=== PATIENT | female | born 1940 | race Caucasian/White ===

== ENCOUNTER 2017-07-29 14:24 | Inpatient (IN) ==
--- NOTE | 2017-07-29 14:35 | Emergency Department Note ---
ED Disposition Clinical Impression: Cellulitis of foot, Exfoliative dermatitis, Hypercalcemia UTI (urinary tract infection) Qualifiers: Urinary tract infection type: site unspecified Hematuria presence: without hematuria Qualified Code(s): N39.0 - Urinary tract infection, site not specified Shingles Qualifiers: Herpes zoster complications: without complications Qualified Code(s): B02.9 - Zoster without complications Disposition: Still a Patient Condition on Discharge: Fair - Critical Care Critical Care Time: No Attestation: On 07/29/17, the high probability of a clinically significant, sudden or life threatening deterioration of the following system(s) required my full and direct attention, intervention and personal management. The time I documented below is in addition to time spent performing reported procedures but includes the following listed in this critical care notation. Medical Decision Making - Mateo Inquiry Pt receiving controlled substance: No Vital Signs: 07/29/17 14:25 07/29/17 17:28 Temperature 97.7 F 98.0 F Temperature Source Oral Oral Pulse Rate [Right Radial] 66 70 Respiratory Rate 18 18 Blood Pressure [Right Arm] 147/74 132/80 Blood Pressure Mean [Right Arm] 98 97 Blood Pressure Source [Right Arm] Automatic Cuff Automatic Cuff Blood Pressure Position [Right Arm] Supine Sitting 02 Sat by Pulse Oximetry 96 97 Oxygen Delivery Method Room Air Room Air - Lab Data Lab Results 07/29/17 14:20: Urine Color Yellow, Urine Appearance Sl cloudy, Urine pH 6.0, Ur Specific [place] 1.020, Urine Protein 3+, Urine Glucose (UA) Negative, Urine Ketones Negative, Urine Blood 1+, Urine Nitrate Negative, Urine Bilirubin Negative, Urine Urobilinogen 0.2, Ur Leukocyte Esterase Trace, Urine RBC 3-5, Urine WBC 50-100, Ur Squamous Epith Cells 5-10, Urine Bacteria 3+ 07/29/17 16:40: WBC 10.3, RBC 4.29, Hgb 13.4, Hct 40.9, MCV 95.2, MCH 31.2, MCHC 32.7, RDW 13.9, Plt Count 220, MPV 7.4, Neut % (Auto) 82.6 H, Lymph % (Auto ) 11.9, [place] % (Auto) 4.6, Eos % (Auto) 0.7, Baso % (Auto) 0.2, Neut # (Auto) 8.5 H, Lymph # (Auto) 1.2, [place] # (Auto) 0.5, Eos # (Auto) 0.1, Baso # (Auto) 0.0 07/29/17 16:40: Sodium 138, Potassium 5.2 H, Chloride 106, Carbon Dioxide 24, Anion Gap 13.2, BUN 44 H, Creatinine 1.85 H, Estimated Creat Clear 27, Estimated GFR 26 L, Est GFR ( Amer) 32 L, Glucose 166 H, Calcium 12.2 H* , Total Bilirubin 0.2, AST 14 L, ALT 15, Alkaline Phosphatase 80, Total Protein 7.6, Albumin 2.9 L, Globulin 4.7 H, Albumin/Globulin Ratio 0.6 L 07/29/17 16:40: Lactic Acid 0.4 Result diagrams: 07/29/17 16:40 07/29/17 16:40 Orders (Tests/Meds): ED MEDICATIONS Generic Name Dose Route Start Last Admin Trade Name Freq PRN Reason Stop Dose Admin Acetaminophen/Codeine Phosphate 1 each 07/29/17 21:00 Tylenol #3 Tablet PO 08/28/17 20:59 QID COUNT INCLUDES THE [facility] Amlodipine Besylate 10 mg 07/30/17 09:00 Norvasc 10mg Tablet PO 08/29/17 08:59 DAILY COUNT INCLUDES THE [facility] Aspirin 81 mg 07/30/17 09:00 Aspirin 81mg Enteric Coated Tablet PO 08/29/17 08:59 DAILY COUNT INCLUDES THE [facility] Carvedilol 25 mg 07/30/17 09:00 Coreg 25mg Tablet PO 08/29/17 08:59 DAILY COUNT INCLUDES THE [facility] Ampicillin Sodium/Sulbactam 100 mls @ 200 mls/hr 07/29/17 18:00 Sodium 3 gm/ Sodium Chloride IV 08/12/17 17:59 Q6H COUNT INCLUDES THE [facility] Protocol Non-Formulary Medication 10 mg 07/29/17 21:00 Pravastatin Sodium [Pravastatin Sodium] PO 08/28/17 20:59 HS COUNT INCLUDES THE [facility] Discontinued Medications Generic Name Dose Route Start Last Admin Trade Name Freq PRN Reason Stop Dose Admin Vancomycin HCl 1,500 mg/ 250 mls @ 125 mls/hr 07/29/17 17:55 Sodium Chloride IV 07/29/17 17:56 ONCE ONE Protocol Sodium Chloride 1,000 ml 07/29/17 17:27 07/29/17 17:58 Sod Chlor 0.9% 1000ml Bag IV 07/29/17 17:28 1,000 ml BOLUS ONE Administration ORDERS Category Date Time Status Foot XR right minimum 3 views [XR foot RT min 3V] Stat Exams 07/29/17 17:36 Taken XR foot LT min 3V Stat Exams 07/29/17 17:36 Taken Urine Culture Stat Micro 07/29/17 14:20 Received Wound Culture and Gram Stain Stat Micro 07/29/17 15:00 Results - Radiology Data #1 Image(s): Foot/Toes Image Reviewed: Yes I reviewed the patient's radiology image Bilateral foot and toes x-rays interpreted by emergency physician: Osteopenia. No definite signs of osteomyelitis. - Physician Consults Physician Consulted: Joseluis begum He Time: 17:53 Reason -: Admission Comment/Response: Admit, Unasyn and vancomycin. Consult Dr. Abraham. Medical Decision Narrative: 5:40 PM: Discussed results with patient and family. Patient has a known history of hypercalcemia. Has seen a mechanical tech. Because apparently is unknown. Review of labs here shows she was as high as 13.9 on 10/13/15. General Adult HPI - General Chief complaint: Extremity Injury, Lower Stated complaint: SHINGLES, BILATERAL FOOT INFECTION Time Seen by Provider: 07/29/17 14:45 - History of Present Illness HPI narrative: Brought in by ambulance from [facility]. History obtained from patient and family. She has 2 separate issues. She has shingles on the right side of her thorax which is been there for a week. She has chronic infection of her toes and feet, but worse today. She loses her toenails. She has an exfoliating rash of all of her toes. Today she has redness that started at her left small toe this morning and is now spreading over the dorsum of her foot. She went to the [facility] for these issues. While at the [facility] she says that they were pushing on her toes and pus was coming out from around all of her nails. She denies any fever. She has pain in both of her feet. She is bedridden for the past 2 years. She does not even get up to wheelchair. She also is a diabetic, but states that her diabetic medication was stopped 1 year ago, she is not sure why. She also has 18% function of her kidneys. Has not had it checked in quite some time as she does not get to the doctor much because of her immobility. - Related Data Home Medications Medication Instructions Recorded Confirmed Acetaminophen with Codeine 1 tab PO QID 07/29/17 07/29/17 [Tylenol with Codeine #3 tablet] Amlodipine Besylate [Amlodipine 10 mg PO DAILY 07/29/17 07/29/17 10mg Tab] Aspirin [Aspir 81] 81 mg PO DAILY 07/29/17 07/29/17 Carvedilol [Carvedilol 25mg Tab] 25 mg PO DAILY 07/29/17 07/29/17 Pravastatin Sodium 10 mg PO HS 07/29/17 07/29/17 Allergies Allergy/AdvReac Type Severity Reaction Status Date / Time nitrofurantoin Allergy Unknown Verified 07/29/17 14:38 [From MACROBID] Sulfa (Sulfonamide Allergy Unknown Verified 07/29/17 14:38 Antibiotics) [SULFA (SULFONAMIDE ANTIBIOTICS)] sulfamethoxazole Allergy Unknown Verified 07/29/17 14:38 [From BACTRIM] trimethoprim [From BACTRIM] Allergy Unknown Verified 07/29/17 14:38 promethazine [From PHENERGAN] AdvReac Intermediate "MAKES HER Verified 07/29/17 14:38 GO CRAZY AND HAVE HALLUCINATIONS" [facility] History I have reviewed the patient's past medical history: Yes ROS Obtained: Yes All systems reviewed & no additional complaints - Constitutional Constitutional: Denies fever(s) - Genitourinary Female Genitourinary: Reports dysuria, Reports urinary frequency - Integumentary/Breasts Skin/Breast: Reports as per HPI Physical Exam - General General appearance: alert, in no apparent distress - Head Head exam: atraumatic, normocephalic, normal inspection - Eye Eye exam: Present: normal appearance, PERRL, EOMI - ENT ENT exam: Present: normal exam - Neck Neck exam: Present: normal inspection, full ROM, trachea midline. Absent: meningismus, lymphadenopathy - Chest Chest inspection: Present: normal inspection, symmetric chest wall rise. Absent : tenderness - Respiratory Respiratory exam: Present: normal lung sounds bilaterally. Absent: respiratory distress - Cardiovascular Cardiovascular exam: Present: regular rate, normal rhythm. Absent: JVD - Abdominal Exam Abdominal exam: Present: soft, normal bowel sounds. Absent: distention, tenderness, guarding - Neurological Exam Neurological exam: Present: alert, oriented X3 - Psychiatric Psychiatric exam: Present: normal affect, normal mood - Skin Skin exam: Present: warm, dry, intact - Expanded Skin Exam Comment: Typical herpes zoster rash right thorax. Hemorrhagic vesicles and scabs. - Lymphatic Lymphatic Findings: no adenopathy - Other Other exam information: Exfoliating rash of all toes and distal foot bilaterally. Loss of toenails. Some still present, but no real attachment to the toes. Left great toe expresses pus when she was applied to the toenail. Well-circumscribed erythema extending from the region of the fourth and fifth left toes to the dorsum of the foot. Poor pedal pulses bilaterally but normal warmth, capillary refill, and sensation.
[2017-07-29 14:52] LABS: Microscopic, Urine URINE MICROSCOPIC (MICROSCOPIC)
[2017-07-29 15:08] LABS: Appearance,Urine SL CLOUDY (Clear); Bilirubin,Urine Negative (Negative); Blood, Urine 1+ (Negative); Color,Urine YELLOW (Yellow); Glucose,Urine (UA) Negative (Negative); Ketones,Urine Negative (Negative); Leukocyte Esterase,Urine TRACE (Negative); Protein,Urine 3+ (Negative); Urobilinogen,Urine 0.2 EU/dl (0.2)
[2017-07-29 15:19] LABS: Bacteria,Urine 3+ /lpf; WBC,Urine 50-100 #/hpf (0-3)
[2017-07-29 17:02] LABS: Basophils % 0.2 % (0.1-2.0); Eosinophils # 0.1 K/mm3 (0.0-0.4); Eosinophils % 0.7 % (0.1-12.0); Hematocrit 40.9 % (37.0-47.0); Hemoglobin 13.4 g/dL (12.2-16.2); Lymphocytes # 1.2 K/mm3 (0.7-4.5); Lymphocytes % 11.9 K/mm3 (10-50); Mean Corpuscular HGB Conc 32.7 g/dL (31.8-35.4); Mean Corpuscular Hemoglobin 31.2 pg (27.0-31.2); Mean Corpuscular Volume 95.2 fl (81-99); Mean Platelet Volume 7.4 fl (7.4-10.4); Monocytes # 0.5 K/mm3 (0.1-1.0); Monocytes % 4.6 % (1.7-9.3); Neutrophils # 8.5 K/mm3 (1.8-7.8); Neutrophils % 82.6 % (37.0-80.0); Platelet Count 220 K/mm3 (142-424); Red Blood Count 4.29 M/mm3 (4.20-5.40); Red Cell Distribution Width 13.9 % (11.5-17.5); White Blood Count 10.3 K/mm3 (4.8-10.8)
[2017-07-29 17:24] LABS: Albumin Level 2.9 gm/dL (3.4-5.0); Albumin/Globulin Ratio 0.6 (1.1-1.8); Anion Gap 13.2 mEq/L (5-15); Bilirubin,Total 0.2 mg/dL (0.2-1.0); Globulin 4.7 gm/dl (1.3-3.2); Potassium 5.2 mmoL/L (3.5-5.1); Total Protein,Serum 7.6 gm/dL (6.4-8.2)
[2017-07-29 17:26] LABS: Calcium 12.2 mg/dL (8.5-10.1)
[2017-07-30 06:13] LABS: Anion Gap 11.4 mEq/L (5-15); Potassium 4.4 mmoL/L (3.5-5.1)
[2017-07-30 08:50] LABS: Calcium 11.1 mg/dL (8.5-10.1)
--- NOTE | 2017-07-30 09:04 | Pharmacy Consult Notes ---
- Pharmacy Consult Date: 07/30/17 Time: 09:03 Referring provider: DR. MAYNARD Reason for Consult:: VANCOMYCIN DOSING Allergies and ADEs:: Allergies Allergy/AdvReac Type Severity Reaction Status Date / Time nitrofurantoin Allergy Unknown Verified 07/29/17 14:38 [From MACROBID] Sulfa (Sulfonamide Allergy Unknown Verified 07/29/17 14:38 Antibiotics) [SULFA (SULFONAMIDE ANTIBIOTICS)] sulfamethoxazole Allergy Unknown Verified 07/29/17 14:38 [From BACTRIM] trimethoprim [From BACTRIM] Allergy Unknown Verified 07/29/17 14:38 promethazine [From PHENERGAN] AdvReac Intermediate "MAKES HER Verified 07/29/17 14:38 GO CRAZY AND HAVE HALLUCINATIONS" Home Medications:: Home Medications Medication Instructions Recorded Confirmed Type Acetaminophen with Codeine 1 tab PO QID 07/29/17 07/29/17 History [Tylenol with Codeine #3 tablet] Amlodipine Besylate [Amlodipine 10 mg PO DAILY 07/29/17 07/29/17 History 10mg Tab] Aspirin [Aspir 81] 81 mg PO DAILY 07/29/17 07/29/17 History Carvedilol [Carvedilol 25mg Tab] 25 mg PO DAILY 07/29/17 07/29/17 History Pravastatin Sodium 10 mg PO HS 07/29/17 07/29/17 History Height: 1.65 m Weight: 74.503 kg Laboratory Results:: Laboratory Results - last 24 hr 07/29/17 14:20: Urine Color Yellow, Urine Appearance Sl cloudy, Urine pH 6.0, Ur Specific [place] 1.020, Urine Protein 3+, Urine Glucose (UA) Negative, Urine Ketones Negative, Urine Blood 1+, Urine Nitrate Negative, Urine Bilirubin Negative, Urine Urobilinogen 0.2, Ur Leukocyte Esterase Trace, Urine RBC 3-5, Urine WBC 50-100, Ur Squamous Epith Cells 5-10, Urine Bacteria 3+ 07/29/17 16:40: WBC 10.3, RBC 4.29, Hgb 13.4, Hct 40.9, MCV 95.2, MCH 31.2, MCHC 32.7, RDW 13.9, Plt Count 220, MPV 7.4, Neut % (Auto) 82.6 H, Lymph % (Auto ) 11.9, [place] % (Auto) 4.6, Eos % (Auto) 0.7, Baso % (Auto) 0.2, Neut # (Auto) 8.5 H, Lymph # (Auto) 1.2, [place] # (Auto) 0.5, Eos # (Auto) 0.1, Baso # (Auto) 0.0 07/29/17 16:40: Sodium 138, Potassium 5.2 H, Chloride 106, Carbon Dioxide 24, Anion Gap 13.2, BUN 44 H, Creatinine 1.85 H, Estimated Creat Clear 27, Estimated GFR 26 L, Est GFR ( Amer) 32 L, Glucose 166 H, Calcium 12.2 H* , Total Bilirubin 0.2, AST 14 L, ALT 15, Alkaline Phosphatase 80, Total Protein 7.6, Albumin 2.9 L, Globulin 4.7 H, Albumin/Globulin Ratio 0.6 L 07/29/17 16:40: Lactic Acid 0.4 07/29/17 21:24: POC Glucose 203 H 07/30/17 05:52: POC Glucose 117 H 07/30/17 05:55: Sodium 141, Potassium 4.4, Chloride 110 H, Carbon Dioxide 24, Anion Gap 11.4, BUN 38 H, Creatinine 1.65 H, Estimated Creat Clear 33, Estimated GFR 30 L, Est GFR ( Amer) 36 L, Glucose 133 H, Calcium 11.1 H Medical History: Reports:: Diabetes Mellitus Type 2 (NOT TAKING MEDICATIONS FOR DM), Hypertension Denies:: Cancer, Diabetes Mellitus Type 1, MRSA Assessment and Plan - Assessment and plan all Dx Assessment and Plan for all problems:: BASED ON PATIENT FACTORS, RECOMMEND VANCOMYCIN 1500 MG IV ONCE, FOLLOWED BY VANCOMYCIN 1250 MG IV Q36H. PHARMACY WILL FOLLOW DAILY AND ADJUST APPROPRIATE.
--- NOTE | 2017-07-30 09:10 | History & Physical Report ---
*Admission Date: 07/29/17 *Chief complaint: foot infection *History of present illness: 77 year old female with a fairly complicated medical history, was taken to her primary care provider at the [facility] yesterday for evaluation of shingles and redness on her foot. During the evaluation the provided reportedly was able to express puss from around one or more of the toenails. She was though to have cellulitis and abscess of her foot so she was brought by EMS to [facility] ER for further evaluation. Patient states she has been bedridden for at [facility] the last 3 years. She reports sustaining a hip fracture 3 years ago and was never able to walk again after her hip replacement surgery despite intensive rehab at [facility] in [place]. [facility] History Medical History: Reports:: Atherosclerotic Heart Disease, Diabetes Mellitus Type 2 (NOT TAKING MEDICATIONS FOR DM), Hypertension, Renal Insufficiency Denies:: Cancer, Diabetes Mellitus Type 1, MRSA Other Medical History: Reports: Arthritis (numerous joints), Other (bedridden for 3 years, hyperparathyroidism, hypercalcemia) Laterality Cases: Bilateral: Total Hip Replacement (both s/p fractures) Other Surgeries: Yes: Cardiac Catheterization, Cholecystectomy, Coronary Stent, Tubal Ligation, Other Amputation: No Fractures: Yes (RADIAL AND ULNAR FRACTURES) - *Social History Educational Level: Completed High School Alcohol Intake: never Occupational Status: retired Housing: house Household Members: significant other - Psychiatric History Expresses thoughts of harming self/others: None Suicide Plan Description: No Plan *Family Hx:: No significant family history Review of Systems - Constitutional Denies chills, Denies fever(s) - Eyes Denies blurry vision - ENT Denies difficulty swallowing - *Cardiovascular Denies chest pain - *Respiratory Denies cough - *Gastrointestinal Denies abdominal pain - *Musculoskeletal Reports joint pain - *Neurologic Denies dizziness - Psychiatric Denies confusion Meds Home Medications Medication Instructions Recorded Confirmed Type Acetaminophen with Codeine 1 tab PO QID 07/29/17 07/29/17 History [Tylenol with Codeine #3 tablet] Amlodipine Besylate [Amlodipine 10 mg PO DAILY 07/29/17 07/29/17 History 10mg Tab] Aspirin [Aspir 81] 81 mg PO DAILY 07/29/17 07/29/17 History Carvedilol [Carvedilol 25mg Tab] 25 mg PO BID 07/29/17 07/30/17 History Pravastatin Sodium 10 mg PO HS 07/29/17 07/29/17 History Allergies Allergy/AdvReac Type Severity Reaction Status Date / Time nitrofurantoin Allergy Unknown Verified 07/29/17 14:38 [From MACROBID] Sulfa (Sulfonamide Allergy Unknown Verified 07/29/17 14:38 Antibiotics) [SULFA (SULFONAMIDE ANTIBIOTICS)] sulfamethoxazole Allergy Unknown Verified 07/29/17 14:38 [From BACTRIM] trimethoprim [From BACTRIM] Allergy Unknown Verified 07/29/17 14:38 promethazine [From PHENERGAN] AdvReac Intermediate "MAKES HER Verified 07/29/17 14:38 GO CRAZY AND HAVE HALLUCINATIONS" Exam Vital signs and Labs for Last 24 Hours: Temp Pulse Resp BP Pulse Ox 98.8 F 89 18 152/64 95 07/30/17 07:51 07/30/17 07:51 07/30/17 07:51 07/30/17 07:51 07/30/17 07:51 Laboratory Results - last 24 hr 07/29/17 14:20: Urine Color Yellow, Urine Appearance Sl cloudy, Urine pH 6.0, Ur Specific [place] 1.020, Urine Protein 3+, Urine Glucose (UA) Negative, Urine Ketones Negative, Urine Blood 1+, Urine Nitrate Negative, Urine Bilirubin Negative, Urine Urobilinogen 0.2, Ur Leukocyte Esterase Trace, Urine RBC 3-5, Urine WBC 50-100, Ur Squamous Epith Cells 5-10, Urine Bacteria 3+ 07/29/17 16:40: WBC 10.3, RBC 4.29, Hgb 13.4, Hct 40.9, MCV 95.2, MCH 31.2, MCHC 32.7, RDW 13.9, Plt Count 220, MPV 7.4, Neut % (Auto) 82.6 H, Lymph % (Auto ) 11.9, [place] % (Auto) 4.6, Eos % (Auto) 0.7, Baso % (Auto) 0.2, Neut # (Auto) 8.5 H, Lymph # (Auto) 1.2, [place] # (Auto) 0.5, Eos # (Auto) 0.1, Baso # (Auto) 0.0 07/29/17 16:40: Sodium 138, Potassium 5.2 H, Chloride 106, Carbon Dioxide 24, Anion Gap 13.2, BUN 44 H, Creatinine 1.85 H, Estimated Creat Clear 27, Estimated GFR 26 L, Est GFR ( Amer) 32 L, Glucose 166 H, Calcium 12.2 H* , Total Bilirubin 0.2, AST 14 L, ALT 15, Alkaline Phosphatase 80, Total Protein 7.6, Albumin 2.9 L, Globulin 4.7 H, Albumin/Globulin Ratio 0.6 L 07/29/17 16:40: Lactic Acid 0.4 07/29/17 21:24: POC Glucose 203 H 07/30/17 05:52: POC Glucose 117 H 07/30/17 05:55: Sodium 141, Potassium 4.4, Chloride 110 H, Carbon Dioxide 24, Anion Gap 11.4, BUN 38 H, Creatinine 1.65 H, Estimated Creat Clear 33, Estimated GFR 30 L, Est GFR ( Amer) 36 L, Glucose 133 H, Calcium 11.1 H I & O for Last 24 hours: Intake & Output 07/27/17 07/28/17 07/29/17 07/30/17 11:59 11:59 11:59 11:59 Intake Total 844 / 844 Balance 844 / 844 Weight 164 lb 4 oz Microbiology Reports for the Last 24 Hours: Microbiology 07/29/17 15:00 Foot,Left Gram Stain - Final 07/29/17 15:00 Foot,Left Wound Culture - Preliminary 07/29/17 14:20 Urine,Clean Catch Urine Culture - Preliminary Gram Negative Rods - Constitutional no acute distress (conversant) - *Routine HEENT Exam ENT: Present: mucous membranes moist (poor dentition) - *Routine Neck Exam Present: supple (limited rotation) - *Routine Respiratory Exam Present: CTA bilaterally - *Routine Cardiovascular Exam Present: RRR - *Routine Abdominal Exam Present: soft, normoactive bowel sounds. Absent: tenderness - *Routine Extremities Exam Absent: cyanosis, clubbing, edema - *Routine Skin Exam Comments: Only minimal dull redness on the top of the left foot, toenails are thickened and crumbling distally, no purulent drainage noted today - *Routine Neurological Exam Present: alert, oriented X3 H&P: Result - Labs Labs: Short CBC 07/29/17 Range/Units 16:40 WBC 10.3 (4.8-10.8) K/mm3 Hgb 13.4 (12.2-16.2) g/dL Hct 40.9 (37.0-47.0) % Plt Count 220 (142-424) K/mm3 BMP 07/29/17 07/30/17 16:40 05:55 Sodium 138 141 Potassium 5.2 H 4.4 Chloride 106 110 H Carbon Dioxide 24 24 BUN 44 H 38 H Creatinine 1.85 H 1.65 H Glucose 166 H 133 H Calcium 12.2 H* 11.1 H Liver Function 07/29/17 Range/Units 16:40 Total Bilirubin 0.2 (0.2-1.0) mg/dL AST 14 L (15-37) U/L ALT 15 (12-78) U/L Alkaline Phosphatase 80 (46-116) U/L Albumin 2.9 L (3.4-5.0) gm/dL Urine 07/29/17 Range/Units 14:20 Urine Color Yellow (Yellow) Urine Appearance Sl cloudy (Clear) Urine pH 6.0 (5.0-8.5) Ur Specific [place] 1.020 (1.005-1.030) Urine Protein 3+ (Negative) Urine Glucose (UA) Negative (Negative) Assessment and Plan (1) Cellulitis of foot Current visit: Yes Status: Acute Category: Medical Code(s): L03.119 - Cellulitis of unspecified part of limb (2) UTI (urinary tract infection) Current visit: Yes Status: Acute Qualifiers: Urinary tract infection type: site unspecified Hematuria presence: without hematuria Qualified Code(s): N39.0 - Urinary tract infection, site not specified Category: Medical Code(s): N39.0 - Urinary tract infection, site not specified (3) Renal insufficiency Current visit: Yes Status: Acute Category: Medical Code(s): N28.9 - Disorder of kidney and ureter, unspecified (4) CAD (coronary artery disease) Current visit: Yes Status: Acute Category: Medical Code(s): I25.10 - Atherosclerotic heart disease of [place] coronary artery without angina pectoris (5) Bedridden Current visit: Yes Status: Acute Category: Medical Code(s): Z74.01 - Bed confinement status (6) Exfoliative dermatitis Current visit: Yes Status: Acute Category: Medical Code(s): L26 - Exfoliative dermatitis (7) Hypercalcemia Current visit: Yes Status: Acute Category: Medical Code(s): E83.52 - Hypercalcemia (8) Shingles Current visit: Yes Status: Acute Qualifiers: Herpes zoster complications: without complications Qualified Code(s): B02.9 - Zoster without complications Category: Medical Code(s): B02.9 - Zoster without complications (9) Hyperparathyroidism Current visit: Yes Status: Acute Category: Medical Code(s): E21.3 - Hyperparathyroidism, unspecified - Assessment and plan all Dx Assessment and Plan for all problems:: Patient admitted for further management and treatment of her foot cellulitis/ abscess, UTI and hypercalcemia. Plan to continue IVF and antibiotics, will recheck calcium and will check PTH. Dr. Abraham has been consulted.
--- NOTE | 2017-07-30 10:41 | Pharmacy Consult Notes ---
[facility] Pharmacy VTE Monitoring - Patient Demographics Admission date: 07/29/17 Report Date: 07/30/17 Time: 10:41 Allergies/Adverse Reactions: Patient Allergies nitrofurantoin [From MACROBID] Allergy (Unknown, Verified 07/29/17 14:38) Sulfa (Sulfonamide Antibiotics) [SULFA (SULFONAMIDE ANTIBIOTICS)] Allergy ( Unknown, Verified 07/29/17 14:38) sulfamethoxazole [From BACTRIM] Allergy (Unknown, Verified 07/29/17 14:38) trimethoprim [From BACTRIM] Allergy (Unknown, Verified 07/29/17 14:38) promethazine [From PHENERGAN] Adverse Reaction (Intermediate, Verified 07/29/17 14:38) "MAKES HER GO CRAZY AND HAVE HALLUCINATIONS" Height: 1.65 m Weight: 74.503 kg Patient Problems: Current Active Problems Cellulitis of foot (Acute) Exfoliative dermatitis (Acute) UTI (urinary tract infection) (Acute) Shingles (Acute) Hypercalcemia (Acute) Renal insufficiency (Acute) CAD (coronary artery disease) (Acute) Bedridden (Acute) - VTE Risk Labs: VTE Related Lab Results Hgb 13.4 g/dL (12.2-16.2) 07/29/17 16:40 Hct 40.9 % (37.0-47.0) 07/29/17 16:40 Plt Count 220 K/mm3 (142-424) 07/29/17 16:40 BUN 38 mg/dL (7-18) H 07/30/17 05:55 Creatinine 1.65 mg/dL (0.55-1.02) H 07/30/17 05:55 Estimated Creat Clear 33 mL/min (0-300) 07/30/17 05:55 Was VTE Risk Assessment Performed: Yes VTE Score: 2 VTE Risk Level: Low Risk - Prophylaxis VTE Prophylaxis Ordered?: Yes Types of VTE Prophylaxis: TEDS Knee High Location of Applied Device: Bilateral Lower Extremeties
[2017-07-31 07:42] LABS: Basophils % 0.6 % (0.1-2.0); Eosinophils # 0.2 K/mm3 (0.0-0.4); Eosinophils % 2.4 % (0.1-12.0); Hemoglobin 11.2 g/dL (12.2-16.2); Lymphocytes # 2.1 K/mm3 (0.7-4.5); Lymphocytes % 31.2 K/mm3 (10-50); Mean Corpuscular Volume 96.8 fl (81-99); Mean Platelet Volume 7.3 fl (7.4-10.4); Monocytes # 0.6 K/mm3 (0.1-1.0); Monocytes % 8.8 % (1.7-9.3); Neutrophils # 3.8 K/mm3 (1.8-7.8); Neutrophils % 56.9 % (37.0-80.0); Platelet Count 201 K/mm3 (142-424); Red Blood Count 3.61 M/mm3 (4.20-5.40); Red Cell Distribution Width 14.3 % (11.5-17.5); White Blood Count 6.8 K/mm3 (4.8-10.8)
[2017-07-31 07:52] LABS: Albumin Level 2.3 gm/dL (3.4-5.0); Albumin/Globulin Ratio 0.6 (1.1-1.8); Anion Gap 12.4 mEq/L (5-15); Bilirubin,Total 0.2 mg/dL (0.2-1.0); Calcium 10.5 mg/dL (8.5-10.1); Globulin 3.9 gm/dl (1.3-3.2); Potassium 4.4 mmoL/L (3.5-5.1); Total Protein,Serum 6.2 gm/dL (6.4-8.2)
--- NOTE | 2017-07-31 09:01 | Progress Note ---
Internal Medicine - PN: Subj *Date: 07/31/17 *Time: 08:57 Interval history: Patient with no new complaints today, states she slept better last night. Exam Vital signs and Labs for Last 24 Hours: Temp Pulse Resp BP Pulse Ox 98.9 F 75 18 158/69 96 07/31/17 07:40 07/31/17 07:40 07/31/17 07:40 07/31/17 07:40 07/31/17 07:40 Laboratory Results - last 24 hr 07/29/17 16:40: Lactic Acid 0.4 07/30/17 20:25: POC Glucose 165 H 07/31/17 06:12: POC Glucose 131 H 07/31/17 07:08: WBC 6.8 D, RBC 3.61 L, Hgb 11.2 L, Hct 35.0 L, MCV 96.8, MCH 31.0, MCHC 32.0, RDW 14.3, Plt Count 201, MPV 7.3 L, Neut % (Auto) 56.9, Lymph % (Auto) 31.2, [place] % (Auto) 8.8, Eos % (Auto) 2.4, Baso % (Auto) 0.6, Neut # ( Auto) 3.8, Lymph # (Auto) 2.1, [place] # (Auto) 0.6, Eos # (Auto) 0.2, Baso # (Auto ) 0.0 07/31/17 07:08: Sodium 141, Potassium 4.4, Chloride 111 H, Carbon Dioxide 22, Anion Gap 12.4, BUN 33 H, Creatinine 1.70 H, Estimated Creat Clear 32, Estimated GFR 29 L, Est GFR ( Amer) 35 L, Glucose 141 H, Calcium 10.5 H, Total Bilirubin 0.2, AST 13 L, ALT 13, Alkaline Phosphatase 64, Total Protein 6.2 L, Albumin 2.3 L, Globulin 3.9 H, Albumin/Globulin Ratio 0.6 L I & O for Last 24 hours: Intake & Output 07/28/17 07/29/17 07/30/17 07/31/17 11:59 11:59 11:59 11:59 Intake Total 1644 / 1644 2798 / 2798 Balance 1644 / 1644 2798 / 2798 Weight 164 lb 4 oz Microbiology Reports for the Last 24 Hours: Microbiology 07/29/17 15:00 Foot,Left Gram Stain - Final 07/29/17 15:00 Foot,Left Wound Culture - Preliminary Gram Positive Cocci 07/29/17 14:20 Urine,Clean Catch Urine Culture - Final Escherichia coli - Constitutional no acute distress - *Routine Respiratory Exam Present: CTA bilaterally (anteriorly) - *Routine Cardiovascular Exam Present: RRR - *Routine Abdominal Exam Present: soft, normoactive bowel sounds. Absent: tenderness Assessment and Plan (1) Cellulitis of foot Current visit: Yes Status: Acute Category: Medical Code(s): L03.119 - Cellulitis of unspecified part of limb (2) E. coli UTI Current visit: Yes Status: Acute Category: Medical Code(s): N39.0 - Urinary tract infection, site not specified; B96.20 - Unspecified Escherichia coli [E. coli] as the cause of diseases classified elsewhere (3) UTI (urinary tract infection) Current visit: Yes Status: Acute Qualifiers: Urinary tract infection type: site unspecified Hematuria presence: without hematuria Qualified Code(s): N39.0 - Urinary tract infection, site not specified Category: Medical Code(s): N39.0 - Urinary tract infection, site not specified (4) Renal insufficiency Current visit: Yes Status: Acute Category: Medical Code(s): N28.9 - Disorder of kidney and ureter, unspecified (5) CAD (coronary artery disease) Current visit: Yes Status: Acute Category: Medical Code(s): I25.10 - Atherosclerotic heart disease of [place] coronary artery without angina pectoris (6) Bedridden Current visit: Yes Status: Acute Category: Medical Code(s): Z74.01 - Bed confinement status (7) Exfoliative dermatitis Current visit: Yes Status: Acute Category: Medical Code(s): L26 - Exfoliative dermatitis (8) Hypercalcemia Current visit: Yes Status: Acute Category: Medical Code(s): E83.52 - Hypercalcemia (9) Shingles Current visit: Yes Status: Acute Qualifiers: Herpes zoster complications: without complications Qualified Code(s): B02.9 - Zoster without complications Category: Medical Code(s): B02.9 - Zoster without complications (10) Hyperparathyroidism Current visit: Yes Status: Acute Category: Medical Code(s): E21.3 - Hyperparathyroidism, unspecified - Assessment and plan all Dx Assessment and Plan for all problems:: Patient stable, await wound culture results and podiatry evaluation, continue IV Vancomycin. and Rocephin.
--- NOTE | 2017-08-01 09:08 | Progress Note ---
Internal Medicine - PN: Subj *Date: 08/01/17 *Time: 09:05 Interval history: Patient notes some swelling in her arms today. Exam Vital signs and Labs for Last 24 Hours: Temp Pulse Resp BP Pulse Ox 98.9 F 73 20 154/71 95 08/01/17 07:23 08/01/17 07:23 08/01/17 07:23 08/01/17 07:23 08/01/17 07:23 Laboratory Results - last 24 hr 07/30/17 11:59: POC Glucose 166 H 07/30/17 16:46: POC Glucose 153 H 07/30/17 16:49: POC Glucose 354 H* 07/31/17 11:24: POC Glucose 153 H 07/31/17 16:40: POC Glucose 112 H 07/31/17 20:31: POC Glucose 141 H 08/01/17 05:47: POC Glucose 141 H I & O for Last 24 hours: Intake & Output 07/29/17 07/30/17 07/31/17 08/01/17 11:59 11:59 11:59 11:59 Intake Total 1644 / 1644 2798 / 2798 3803 / 3803 Balance 1644 / 1644 2798 / 2798 3803 / 3803 Weight 164 lb 4 oz Microbiology Reports for the Last 24 Hours: Microbiology 07/29/17 15:00 Foot,Left Gram Stain - Final 07/29/17 15:00 Foot,Left Wound Culture - Final Staphylococcus aureus 07/29/17 14:20 Urine,Clean Catch Urine Culture - Final Escherichia coli - Constitutional no acute distress - *Routine Respiratory Exam Present: CTA bilaterally - *Routine Cardiovascular Exam Present: RRR - *Routine Extremities Exam Comments: Some edema in both arms, right more than left. - *Routine Skin Exam Comments: Less redness along the lateral side of the left foot. Assessment and Plan (1) Cellulitis of foot Current visit: Yes Status: Acute Category: Medical Code(s): L03.119 - Cellulitis of unspecified part of limb (2) MRSA infection Current visit: Yes Status: Acute Category: Medical Code(s): A49.02 - Methicillin resistant Staphylococcus aureus infection, unspecified site (3) E. coli UTI Current visit: Yes Status: Acute Category: Medical Code(s): N39.0 - Urinary tract infection, site not specified; B96.20 - Unspecified Escherichia coli [E. coli] as the cause of diseases classified elsewhere (4) UTI (urinary tract infection) Current visit: Yes Status: Acute Qualifiers: Urinary tract infection type: site unspecified Hematuria presence: without hematuria Qualified Code(s): N39.0 - Urinary tract infection, site not specified Category: Medical Code(s): N39.0 - Urinary tract infection, site not specified (5) Renal insufficiency Current visit: Yes Status: Acute Category: Medical Code(s): N28.9 - Disorder of kidney and ureter, unspecified (6) CAD (coronary artery disease) Current visit: Yes Status: Acute Category: Medical Code(s): I25.10 - Atherosclerotic heart disease of [place] coronary artery without angina pectoris (7) Bedridden Current visit: Yes Status: Acute Category: Medical Code(s): Z74.01 - Bed confinement status (8) Exfoliative dermatitis Current visit: Yes Status: Acute Category: Medical Code(s): L26 - Exfoliative dermatitis (9) Hypercalcemia Current visit: Yes Status: Acute Category: Medical Code(s): E83.52 - Hypercalcemia (10) Shingles Current visit: Yes Status: Acute Qualifiers: Herpes zoster complications: without complications Qualified Code(s): B02.9 - Zoster without complications Category: Medical Code(s): B02.9 - Zoster without complications (11) Hyperparathyroidism Current visit: Yes Status: Acute Category: Medical Code(s): E21.3 - Hyperparathyroidism, unspecified - Assessment and plan all Dx Assessment and Plan for all problems:: Patient is improving. Plan PICC line placement today, as patient will need to be on Vanc and Rocephin.
--- NOTE | 2017-08-01 13:22 | History & Physical Report ---
*Admission Date: 07/29/17 *Chief complaint: Toenail discoloration, cellulitis *History of present illness: 77 year old female with a fairly complicated medical history, was taken to her primary care provider at the [facility] yesterday for evaluation of shingles and redness on her foot. During the evaluation the provided reportedly was able to express puss from around one or more of the toenails. She was though to have cellulitis and abscess of her foot so she was brought by EMS to [facility] ER for further evaluation. Patient states she has been bedridden for at [facility] the last 3 years. She reports sustaining a hip fracture 3 years ago and was never able to walk again after her hip replacement surgery despite intensive rehab at [facility] in [place]. [facility] History I have reviewed the patient's past medical history: Yes Medical History: Reports:: Atherosclerotic Heart Disease, Diabetes Mellitus Type 2 (NOT TAKING MEDICATIONS FOR DM), Hypertension, Renal Insufficiency Denies:: Cancer, Diabetes Mellitus Type 1, MRSA Other Medical History: Reports: Arthritis (numerous joints), Other (bedridden for 3 years, hyperparathyroidism, hypercalcemia) Laterality Cases: Bilateral: Total Hip Replacement (both s/p fractures) Other Surgeries: Yes: Cardiac Catheterization, Cholecystectomy, Coronary Stent, Tubal Ligation, Other Amputation: No Fractures: Yes (RADIAL AND ULNAR FRACTURES) - *Social History Educational Level: Completed High School Alcohol Intake: never Occupational Status: retired Housing: house Household Members: significant other - Psychiatric History Expresses thoughts of harming self/others: None Suicide Plan Description: No Plan *Family Hx:: No significant family history Review of Systems - Review of Systems Review of systems:: unable to obtain - Constitutional Denies anorexia, Denies body ache(s), Denies chills, Denies excessive sweating, Denies fever(s) - Eyes Denies blurry vision - *Cardiovascular Denies chest pain, Denies excessive sweating, Denies shortness of breath with activity - *Respiratory Denies cough, Denies shortness of breath - *Gastrointestinal Denies abdominal pain - *Genitourinary Denies difficulty urinating - *Musculoskeletal Reports limited joint movement - *Neurologic Denies confusion, Denies dizziness - Psychiatric Denies anxiety - Hematologic/Lymphatic Reports easy bruising Meds Home Medications Medication Instructions Recorded Confirmed Type Acetaminophen with Codeine 1 tab PO QID 07/29/17 07/29/17 History [Tylenol with Codeine #3 tablet] Amlodipine Besylate [Amlodipine 10 mg PO DAILY 07/29/17 07/29/17 History 10mg Tab] Aspirin [Aspir 81] 81 mg PO DAILY 07/29/17 07/29/17 History Carvedilol [Carvedilol 25mg Tab] 25 mg PO BID 07/29/17 07/30/17 History Pravastatin Sodium 10 mg PO HS 07/29/17 07/29/17 History Allergies Allergy/AdvReac Type Severity Reaction Status Date / Time nitrofurantoin Allergy Unknown Verified 07/29/17 14:38 [From MACROBID] Sulfa (Sulfonamide Allergy Unknown Verified 07/29/17 14:38 Antibiotics) [SULFA (SULFONAMIDE ANTIBIOTICS)] sulfamethoxazole Allergy Unknown Verified 07/29/17 14:38 [From BACTRIM] trimethoprim [From BACTRIM] Allergy Unknown Verified 07/29/17 14:38 promethazine [From PHENERGAN] AdvReac Intermediate "MAKES HER Verified 07/29/17 14:38 GO CRAZY AND HAVE HALLUCINATIONS" Exam Vital signs and Labs for Last 24 Hours: Temp Pulse Resp BP Pulse Ox 98.9 F 73 20 154/71 95 08/01/17 07:23 08/01/17 07:23 08/01/17 07:23 08/01/17 07:23 08/01/17 07:23 Laboratory Results - last 24 hr 07/30/17 11:59: POC Glucose 166 H 07/30/17 16:46: POC Glucose 153 H 07/30/17 16:49: POC Glucose 354 H* 07/31/17 16:40: POC Glucose 112 H 07/31/17 20:31: POC Glucose 141 H 08/01/17 05:47: POC Glucose 141 H 08/01/17 11:55: POC Glucose 191 H I & O for Last 24 hours: Intake & Output 07/30/17 07/31/17 08/01/17 08/02/17 11:59 11:59 11:59 11:59 Intake Total 1644 / 1644 2798 / 2798 3803 / 3803 Balance 1644 / 1644 2798 / 2798 3803 / 3803 Weight 164 lb 4 oz Microbiology Reports for the Last 24 Hours: Microbiology 07/29/17 09:06 Blood Blood Culture - Preliminary NO GROWTH AFTER 24 HOURS 07/29/17 09:00 Blood Blood Culture - Preliminary NO GROWTH AFTER 24 HOURS 07/29/17 15:00 Foot,Left Gram Stain - Final 07/29/17 15:00 Foot,Left Wound Culture - Final Staphylococcus aureus - *Routine HEENT Exam Head: Present: normocephalic - *Routine Neck Exam Absent: JVD - *Routine Respiratory Exam Present: accessory muscle use. Absent: decreased breath sounds - *Routine Cardiovascular Exam Present: RRR - *Routine Abdominal Exam Present: soft - *Routine Rectal Exam Patient deferred: visual exam - *Routine Exam Patient deferred: external exam - *Routine Extremities Exam Absent: calf tenderness, amputation - *Routine Skin Exam Present: intact. Absent: erythema, wounds - *Routine Neurological Exam Present: alert - Detailed Lower Extremity Exam Comments: Multiple discolorations noted on bilateral lower extremities. Palpable pedal pulses 1+ bilaterally. Temp within normal limits. No open lesions or interdigital macerations noted. Nails 1 through 10 thickened elongated. Left first and second and right hallux toenails thick and partially avulsed. Those 3 toenails were removed and underneath there was macerated soft tissue. Right hallux had one less than 1 cc of purulent drainage but no area of deep infection. There was no wound that probed deeply. No malodor or ascending cellulitis noted. The heels did not have signs of pressure ulceration. Patient is very thin and the skin is very thin. Concern of possible ulcer development Results - Labs Result Diagrams: 07/31/17 07:08 07/31/17 07:08 Labs: Abnormal lab results 07/30/17 07/30/17 07/30/17 Range/Units 11:59 16:46 16:49 POC Glucose 166 H 153 H 354 H* (70-110) 07/31/17 07/31/17 08/01/17 Range/Units 16:40 20:31 05:47 POC Glucose 112 H 141 H 141 H (70-110) 08/01/17 Range/Units 11:55 POC Glucose 191 H (70-110) H & H 07/29/17 07/31/17 Range/Units 16:40 07:08 Hgb 13.4 11.2 L (12.2-16.2) g/dL Hct 40.9 35.0 L (37.0-47.0) % All other labs normal. Assessment and Plan (1) Cellulitis of foot Start date: 07/29/17 Current visit: Yes Status: Acute Category: Medical Code(s): L03.119 - Cellulitis of unspecified part of limb Cellulitis, color toenails: Toenails 1 through 10 trimmed with a nail nipper. Under the left first and second toenail there was very soft macerated skin. 1 cc of purulence noted from the right first toenail after it was removed. No ascending cellulitis, nonpalpable lymph nodes, no increased skin temperature noted to the digits. I do not believe there is evidence of any deep infection based on the x-rays and clinical presentation. I think the patient has had a fungal toenail that was compounded with a possible superficial bacterial infection. Symptoms have seemed to improve since she was admitted. Toenails were painted with Betadine and a dry sterile dressing was applied. No evidence of deep infection. Discussed Dr. Cutler and agree with antibiotic therapy. No plans for surgical intervention at this time. The heels did not have signs of pressure ulceration. Patient is very thin and the skin is very thin. Concern of possible ulcer development and break down to pressure heel ulcers. Off load b/l heels with pillows. Patient can follow-up with al outpatient for routine nail care every 2-3 months. (2) MRSA infection Current visit: Yes Status: Acute Category: Medical Code(s): A49.02 - Methicillin resistant Staphylococcus aureus infection, unspecified site (3) E. coli UTI Current visit: Yes Status: Acute Category: Medical Code(s): N39.0 - Urinary tract infection, site not specified; B96.20 - Unspecified Escherichia coli [E. coli] as the cause of diseases classified elsewhere (4) UTI (urinary tract infection) Current visit: Yes Status: Acute Qualifiers: Urinary tract infection type: site unspecified Hematuria presence: without hematuria Qualified Code(s): N39.0 - Urinary tract infection, site not specified Category: Medical Code(s): N39.0 - Urinary tract infection, site not specified (5) Renal insufficiency Current visit: Yes Status: Acute Category: Medical Code(s): N28.9 - Disorder of kidney and ureter, unspecified (6) CAD (coronary artery disease) Current visit: Yes Status: Acute Category: Medical Code(s): I25.10 - Atherosclerotic heart disease of [place] coronary artery without angina pectoris (7) Bedridden Current visit: Yes Status: Acute Category: Medical Code(s): Z74.01 - Bed confinement status (8) Exfoliative dermatitis Current visit: Yes Status: Acute Category: Medical Code(s): L26 - Exfoliative dermatitis (9) Hypercalcemia Current visit: Yes Status: Acute Category: Medical Code(s): E83.52 - Hypercalcemia (10) Shingles Current visit: Yes Status: Acute Qualifiers: Herpes zoster complications: without complications Qualified Code(s): B02.9 - Zoster without complications Category: Medical Code(s): B02.9 - Zoster without complications (11) Hyperparathyroidism Current visit: Yes Status: Acute Category: Medical Code(s): E21.3 - Hyperparathyroidism, unspecified
[2017-08-02 06:56] LABS: Basophils % 0.4 % (0.1-2.0); Eosinophils # 0.4 K/mm3 (0.0-0.4); Eosinophils % 5.3 % (0.1-12.0); Hematocrit 33.5 % (37.0-47.0); Hemoglobin 10.6 g/dL (12.2-16.2); Lymphocytes # 1.7 K/mm3 (0.7-4.5); Lymphocytes % 25.8 K/mm3 (10-50); Mean Corpuscular HGB Conc 31.6 g/dL (31.8-35.4); Mean Corpuscular Hemoglobin 30.8 pg (27.0-31.2); Mean Corpuscular Volume 97.3 fl (81-99); Mean Platelet Volume 7.4 fl (7.4-10.4); Monocytes # 0.5 K/mm3 (0.1-1.0); Monocytes % 7.5 % (1.7-9.3); Platelet Count 199 K/mm3 (142-424); Red Blood Count 3.44 M/mm3 (4.20-5.40); Red Cell Distribution Width 14.2 % (11.5-17.5); White Blood Count 6.6 K/mm3 (4.8-10.8)
[2017-08-02 07:01] LABS: Anion Gap 12.4 mEq/L (5-15); Potassium 4.4 mmoL/L (3.5-5.1)
[2017-08-02 07:38] VITALS: BP 176/70
--- NOTE | 2017-08-02 07:51 | Progress Note ---
Internal Medicine - PN: Subj *Date: 08/02/17 *Time: 07:51 Exam Vital signs and Labs for Last 24 Hours: Temp Pulse Resp BP Pulse Ox 97.9 F 69 20 176/70 93 L 08/02/17 07:36 08/02/17 07:36 08/02/17 07:36 08/02/17 07:36 08/02/17 07:36 Laboratory Results - last 24 hr 07/31/17 07:08: PTH Intact 330 H 08/01/17 11:55: POC Glucose 191 H 08/01/17 17:19: POC Glucose 148 H 08/01/17 18:30: Vancomycin Trough 14.9 08/01/17 21:19: POC Glucose 146 H 08/02/17 06:35: WBC 6.6, RBC 3.44 L, Hgb 10.6 L, Hct 33.5 L, MCV 97.3, MCH 30.8 , MCHC 31.6 L, RDW 14.2, Plt Count 199, MPV 7.4, Neut % (Auto) 61.0, Lymph % ( Auto) 25.8, [place] % (Auto) 7.5, Eos % (Auto) 5.3, Baso % (Auto) 0.4, Neut # (Auto ) 4.0, Lymph # (Auto) 1.7, [place] # (Auto) 0.5, Eos # (Auto) 0.4, Baso # (Auto) 0.0 08/02/17 06:35: Sodium 143, Potassium 4.4, Chloride 113 H, Carbon Dioxide 22, Anion Gap 12.4, BUN 25 H, Creatinine 1.72 H, Estimated Creat Clear 31, Estimated GFR 29 L, Est GFR ( Amer) 35 L, Glucose 133 H 08/02/17 07:07: POC Glucose 118 H I & O for Last 24 hours: Intake & Output 07/30/17 07/31/17 08/01/17 08/02/17 23:59 23:59 23:59 23:59 Intake Total 2610 / 2610 4766 / 4766 1469 / 1469 480 / 480 Balance 2610 / 2610 4766 / 4766 1469 / 1469 480 / 480 Weight 74.503 kg 74.503 kg Microbiology Reports for the Last 24 Hours: Microbiology 07/29/17 09:06 Blood Blood Culture - Preliminary NO GROWTH AFTER 24 HOURS 07/29/17 09:00 Blood Blood Culture - Preliminary NO GROWTH AFTER 24 HOURS 07/29/17 15:00 Foot,Left Gram Stain - Final 07/29/17 15:00 Foot,Left Wound Culture - Final Staphylococcus aureus Assessment and Plan (1) Cellulitis of foot Start date: 07/29/17 Current visit: Yes Status: Acute Category: Medical Code(s): L03.119 - Cellulitis of unspecified part of limb (2) MRSA infection Current visit: Yes Status: Acute Category: Medical Code(s): A49.02 - Methicillin resistant Staphylococcus aureus infection, unspecified site (3) E. coli UTI Current visit: Yes Status: Acute Category: Medical Code(s): N39.0 - Urinary tract infection, site not specified; B96.20 - Unspecified Escherichia coli [E. coli] as the cause of diseases classified elsewhere (4) UTI (urinary tract infection) Current visit: Yes Status: Acute Qualifiers: Qualified Code(s): N39.0 - Urinary tract infection, site not specified Category: Medical Code(s): N39.0 - Urinary tract infection, site not specified (5) Renal insufficiency Current visit: Yes Status: Acute Category: Medical Code(s): N28.9 - Disorder of kidney and ureter, unspecified (6) CAD (coronary artery disease) Current visit: Yes Status: Acute Category: Medical Code(s): I25.10 - Atherosclerotic heart disease of [place] coronary artery without angina pectoris (7) Bedridden Current visit: Yes Status: Acute Category: Medical Code(s): Z74.01 - Bed confinement status (8) Exfoliative dermatitis Current visit: Yes Status: Acute Category: Medical Code(s): L26 - Exfoliative dermatitis (9) Hypercalcemia Current visit: Yes Status: Acute Category: Medical Code(s): E83.52 - Hypercalcemia (10) Shingles Current visit: Yes Status: Acute Qualifiers: Qualified Code(s): B02.9 - Zoster without complications Category: Medical Code(s): B02.9 - Zoster without complications (11) Hyperparathyroidism Current visit: Yes Status: Acute Category: Medical Code(s): E21.3 - Hyperparathyroidism, unspecified The patient's infection will respond to the chosen ABx?: Yes Is the patient receiving the right drug, dose, and route?: Yes Could a more targeted ABx be ordered?: No
--- NOTE | 2017-08-02 07:54 | Progress Note ---
Subjective Date: 08/02/17 Time: 07:40 Principal diagnosis: Cellulitis Interval history: Patient is laying comfortably in bed. She denies pain to the feet. She states "my ankles and heels feel better, like I can move them around more and aren't as stiff". She denies N/V, F/C, SOB/CP. PN: Obj Ex Vital signs: Temp Pulse Resp BP Pulse Ox 97.9 F 69 20 176/70 93 L 08/02/17 07:36 08/02/17 07:36 08/02/17 07:36 08/02/17 07:36 08/02/17 07:36 - Constitutional no acute distress - Routine HEENT Exam Head: Present: normocephalic - Routine Neck Exam Absent: JVD - Routine Respiratory Exam Absent: respiratory distress - Routine Abdominal Exam Present: soft - Routine Extremities Exam Absent: edema - Detailed Lower Extremity Exam Comments: Toenails b/l hallux removed. No new SOI. No purulence, malodor or ascending cellulitis. No increased warmth. No pain to palpation. The erythema noted to the left dorsal lateral foot yesterday has improved. No palpable lymph nodes. No calf or thigh pain noted b/l. Progress Note: A&P (1) Cellulitis of foot Status: Acute Current Visit: Yes (2) MRSA infection Status: Acute Current Visit: Yes (3) E. coli UTI Status: Acute Current Visit: Yes (4) UTI (urinary tract infection) Status: Acute Current Visit: Yes (5) Renal insufficiency Status: Acute Current Visit: Yes (6) CAD (coronary artery disease) Status: Acute Current Visit: Yes (7) Bedridden Status: Acute Current Visit: Yes (8) Exfoliative dermatitis Status: Acute Current Visit: Yes (9) Hypercalcemia Status: Acute Current Visit: Yes (10) Shingles Status: Acute Current Visit: Yes (11) Hyperparathyroidism Status: Acute Current Visit: Yes
--- NOTE | 2017-08-02 08:29 | Progress Note ---
<Alyssa Lee - Last Filed: 08/02/17 08:30> Internal Medicine - PN: Subj *Date: 08/02/17 *Time: 08:30 Interval history: Patient states that she is doing rather well. She has did sleep. She denies pain and shortness of breath. She eating without problems and her bowels have moved. She is voiding QS. She does not get out of bed. She needs assisting with movement in the bed. Exam Vital signs and Labs for Last 24 Hours: Temp Pulse Resp BP Pulse Ox 97.9 F 69 20 176/70 93 L 08/02/17 07:36 08/02/17 07:36 08/02/17 07:36 08/02/17 07:36 08/02/17 07:36 Laboratory Results - last 24 hr 07/31/17 07:08: PTH Intact 330 H 08/01/17 11:55: POC Glucose 191 H 08/01/17 17:19: POC Glucose 148 H 08/01/17 18:30: Vancomycin Trough 14.9 08/01/17 21:19: POC Glucose 146 H 08/02/17 06:35: WBC 6.6, RBC 3.44 L, Hgb 10.6 L, Hct 33.5 L, MCV 97.3, MCH 30.8 , MCHC 31.6 L, RDW 14.2, Plt Count 199, MPV 7.4, Neut % (Auto) 61.0, Lymph % ( Auto) 25.8, [place] % (Auto) 7.5, Eos % (Auto) 5.3, Baso % (Auto) 0.4, Neut # (Auto ) 4.0, Lymph # (Auto) 1.7, [place] # (Auto) 0.5, Eos # (Auto) 0.4, Baso # (Auto) 0.0 08/02/17 06:35: Sodium 143, Potassium 4.4, Chloride 113 H, Carbon Dioxide 22, Anion Gap 12.4, BUN 25 H, Creatinine 1.72 H, Estimated Creat Clear 31, Estimated GFR 29 L, Est GFR ( Amer) 35 L, Glucose 133 H 08/02/17 07:07: POC Glucose 118 H I & O for Last 24 hours: Intake & Output 07/30/17 07/31/17 08/01/17 08/02/17 11:59 11:59 11:59 11:59 Intake Total 1644 / 1644 2798 / 2798 3803 / 3803 1080 / 1080 Balance 1644 / 1644 2798 / 2798 3803 / 3803 1080 / 1080 Weight 164 lb 4 oz 164 lb 4.016 oz Microbiology Reports for the Last 24 Hours: Microbiology 07/29/17 09:06 Blood Blood Culture - Preliminary NO GROWTH AFTER 24 HOURS 07/29/17 09:00 Blood Blood Culture - Preliminary NO GROWTH AFTER 24 HOURS 07/29/17 15:00 Foot,Left Gram Stain - Final 07/29/17 15:00 Foot,Left Wound Culture - Final Staphylococcus aureus - Constitutional no acute distress - *Routine Respiratory Exam Present: CTA bilaterally (Anteriorly and posteriorly; diminished at bases) - *Routine Cardiovascular Exam Present: RRR - *Routine Abdominal Exam Present: soft, normoactive bowel sounds. Absent: tenderness - *Routine Extremities Exam Absent: edema, calf tenderness Comments: Toenails are painted. - *Routine Neurological Exam Present: alert, oriented X3 Assessment and Plan (1) Cellulitis of foot Start date: 07/29/17 Current visit: Yes Status: Acute Category: Medical Code(s): L03.119 - Cellulitis of unspecified part of limb (2) MRSA infection Current visit: Yes Status: Acute Category: Medical Code(s): A49.02 - Methicillin resistant Staphylococcus aureus infection, unspecified site (3) E. coli UTI Current visit: Yes Status: Acute Category: Medical Code(s): N39.0 - Urinary tract infection, site not specified; B96.20 - Unspecified Escherichia coli [E. coli] as the cause of diseases classified elsewhere (4) UTI (urinary tract infection) Current visit: Yes Status: Acute Qualifiers: Urinary tract infection type: site unspecified Hematuria presence: without hematuria Qualified Code(s): N39.0 - Urinary tract infection, site not specified Category: Medical Code(s): N39.0 - Urinary tract infection, site not specified (5) Renal insufficiency Current visit: Yes Status: Acute Category: Medical Code(s): N28.9 - Disorder of kidney and ureter, unspecified (6) CAD (coronary artery disease) Current visit: Yes Status: Acute Category: Medical Code(s): I25.10 - Atherosclerotic heart disease of [place] coronary artery without angina pectoris (7) Bedridden Current visit: Yes Status: Acute Category: Medical Code(s): Z74.01 - Bed confinement status (8) Exfoliative dermatitis Current visit: Yes Status: Acute Category: Medical Code(s): L26 - Exfoliative dermatitis (9) Hypercalcemia Current visit: Yes Status: Acute Category: Medical Code(s): E83.52 - Hypercalcemia (10) Shingles Current visit: Yes Status: Acute Qualifiers: Herpes zoster complications: without complications Qualified Code(s): B02.9 - Zoster without complications Category: Medical Code(s): B02.9 - Zoster without complications (11) Hyperparathyroidism Current visit: Yes Status: Acute Category: Medical Code(s): E21.3 - Hyperparathyroidism, unspecified - Assessment and plan all Dx Assessment and Plan for all problems:: Continue with IV antibiotics. <Mg Cutler - Last Filed: 08/02/17 09:13> Internal Medicine - PN: Subj *Date: 08/02/17 *Time: 09:11 Exam Vital signs and Labs for Last 24 Hours: Temp Pulse Resp BP Pulse Ox 97.9 F 69 20 176/70 93 L 08/02/17 07:36 08/02/17 07:36 08/02/17 07:36 08/02/17 07:36 08/02/17 07:36 Laboratory Results - last 24 hr 07/31/17 07:08: PTH Intact 330 H 08/01/17 11:55: POC Glucose 191 H 08/01/17 17:19: POC Glucose 148 H 08/01/17 18:30: Vancomycin Trough 14.9 08/01/17 21:19: POC Glucose 146 H 08/02/17 06:35: WBC 6.6, RBC 3.44 L, Hgb 10.6 L, Hct 33.5 L, MCV 97.3, MCH 30.8 , MCHC 31.6 L, RDW 14.2, Plt Count 199, MPV 7.4, Neut % (Auto) 61.0, Lymph % ( Auto) 25.8, [place] % (Auto) 7.5, Eos % (Auto) 5.3, Baso % (Auto) 0.4, Neut # (Auto ) 4.0, Lymph # (Auto) 1.7, [place] # (Auto) 0.5, Eos # (Auto) 0.4, Baso # (Auto) 0.0 08/02/17 06:35: Sodium 143, Potassium 4.4, Chloride 113 H, Carbon Dioxide 22, Anion Gap 12.4, BUN 25 H, Creatinine 1.72 H, Estimated Creat Clear 31, Estimated GFR 29 L, Est GFR ( Amer) 35 L, Glucose 133 H 08/02/17 07:07: POC Glucose 118 H I & O for Last 24 hours: Intake & Output 07/30/17 07/31/17 08/01/17 08/02/17 11:59 11:59 11:59 11:59 Intake Total 1644 / 1644 2798 / 2798 3803 / 3803 1080 / 1080 Balance 1644 / 1644 2798 / 2798 3803 / 3803 1080 / 1080 Weight 164 lb 4 oz 164 lb 4.016 oz Microbiology Reports for the Last 24 Hours: Microbiology 07/29/17 09:06 Blood Blood Culture - Preliminary NO GROWTH AFTER 24 HOURS 07/29/17 09:00 Blood Blood Culture - Preliminary NO GROWTH AFTER 24 HOURS 07/29/17 15:00 Foot,Left Gram Stain - Final 07/29/17 15:00 Foot,Left Wound Culture - Final Staphylococcus aureus Assessment and Plan (1) Cellulitis of foot Start date: 07/29/17 Current visit: Yes Status: Acute Category: Medical Code(s): L03.119 - Cellulitis of unspecified part of limb (2) MRSA infection Current visit: Yes Status: Acute Category: Medical Code(s): A49.02 - Methicillin resistant Staphylococcus aureus infection, unspecified site (3) E. coli UTI Current visit: Yes Status: Acute Category: Medical Code(s): N39.0 - Urinary tract infection, site not specified; B96.20 - Unspecified Escherichia coli [E. coli] as the cause of diseases classified elsewhere (4) UTI (urinary tract infection) Current visit: Yes Status: Acute Qualifiers: Urinary tract infection type: site unspecified Hematuria presence: without hematuria Qualified Code(s): N39.0 - Urinary tract infection, site not specified Category: Medical Code(s): N39.0 - Urinary tract infection, site not specified (5) Renal insufficiency Current visit: Yes Status: Acute Category: Medical Code(s): N28.9 - Disorder of kidney and ureter, unspecified (6) CAD (coronary artery disease) Current visit: Yes Status: Acute Category: Medical Code(s): I25.10 - Atherosclerotic heart disease of [place] coronary artery without angina pectoris (7) Bedridden Current visit: Yes Status: Acute Category: Medical Code(s): Z74.01 - Bed confinement status (8) Exfoliative dermatitis Current visit: Yes Status: Acute Category: Medical Code(s): L26 - Exfoliative dermatitis (9) Hypercalcemia Current visit: Yes Status: Acute Category: Medical Code(s): E83.52 - Hypercalcemia (10) Shingles Current visit: Yes Status: Acute Qualifiers: Herpes zoster complications: without complications Qualified Code(s): B02.9 - Zoster without complications Category: Medical Code(s): B02.9 - Zoster without complications (11) Hyperparathyroidism Current visit: Yes Status: Acute Category: Medical Code(s): E21.3 - Hyperparathyroidism, unspecified - Assessment and plan all Dx Assessment and Plan for all problems:: Saw patient, agree with above note, plan discharge today with IV Vancomycin every 36 hours for the next 10 days. Patient to f/u with primary MD in 2 weeks for possible PICC line removal. She needs to f/u with Dr. Randall in [address] Abraham in 3 months.
--- NOTE | 2017-08-02 09:34 | Pharmacy Consult Notes ---
- Pharmacy Consult Date: 08/02/17 Time: 09:32 Referring provider: DR. MAYNARD Reason for Consult:: VANCOMYCIN TROUGH LEVEL Allergies and ADEs:: Allergies Allergy/AdvReac Type Severity Reaction Status Date / Time nitrofurantoin Allergy Unknown Verified 07/29/17 14:38 [From MACROBID] Sulfa (Sulfonamide Allergy Unknown Verified 07/29/17 14:38 Antibiotics) [SULFA (SULFONAMIDE ANTIBIOTICS)] sulfamethoxazole Allergy Unknown Verified 07/29/17 14:38 [From BACTRIM] trimethoprim [From BACTRIM] Allergy Unknown Verified 07/29/17 14:38 promethazine [From PHENERGAN] AdvReac Intermediate "MAKES HER Verified 07/29/17 14:38 GO CRAZY AND HAVE HALLUCINATIONS" Home Medications:: Home Medications Medication Instructions Recorded Confirmed Type Acetaminophen with Codeine 1 tab PO QID 07/29/17 07/29/17 History [Tylenol with Codeine #3 tablet] Amlodipine Besylate [Amlodipine 10 mg PO DAILY 07/29/17 07/29/17 History 10mg Tab] Aspirin [Aspir 81] 81 mg PO DAILY 07/29/17 07/29/17 History Carvedilol [Carvedilol 25mg Tab] 25 mg PO BID 07/29/17 07/30/17 History Pravastatin Sodium 10 mg PO HS 07/29/17 07/29/17 History Height: 1.65 m Weight: 74.503 kg Laboratory Results:: Laboratory Results - last 24 hr 07/31/17 07:08: PTH Intact 330 H 08/01/17 11:55: POC Glucose 191 H 08/01/17 17:19: POC Glucose 148 H 08/01/17 18:30: Vancomycin Trough 14.9 08/01/17 21:19: POC Glucose 146 H 08/02/17 06:35: WBC 6.6, RBC 3.44 L, Hgb 10.6 L, Hct 33.5 L, MCV 97.3, MCH 30.8 , MCHC 31.6 L, RDW 14.2, Plt Count 199, MPV 7.4, Neut % (Auto) 61.0, Lymph % ( Auto) 25.8, [place] % (Auto) 7.5, Eos % (Auto) 5.3, Baso % (Auto) 0.4, Neut # (Auto ) 4.0, Lymph # (Auto) 1.7, [place] # (Auto) 0.5, Eos # (Auto) 0.4, Baso # (Auto) 0.0 08/02/17 06:35: Sodium 143, Potassium 4.4, Chloride 113 H, Carbon Dioxide 22, Anion Gap 12.4, BUN 25 H, Creatinine 1.72 H, Estimated Creat Clear 31, Estimated GFR 29 L, Est GFR ( Amer) 35 L, Glucose 133 H 08/02/17 07:07: POC Glucose 118 H Medical History: Reports:: Atherosclerotic Heart Disease, Diabetes Mellitus Type 2 (NOT TAKING MEDICATIONS FOR DM), Hypertension, Renal Insufficiency Denies:: Cancer, Diabetes Mellitus Type 1, MRSA Assessment and Plan (1) Cellulitis of foot Start date: 07/29/17 Current visit: Yes Status: Acute Category: Medical Code(s): L03.119 - Cellulitis of unspecified part of limb (2) MRSA infection Current visit: Yes Status: Acute Category: Medical Code(s): A49.02 - Methicillin resistant Staphylococcus aureus infection, unspecified site (3) E. coli UTI Current visit: Yes Status: Acute Category: Medical Code(s): N39.0 - Urinary tract infection, site not specified; B96.20 - Unspecified Escherichia coli [E. coli] as the cause of diseases classified elsewhere (4) UTI (urinary tract infection) Current visit: Yes Status: Acute Qualifiers: Urinary tract infection type: site unspecified Hematuria presence: without hematuria Qualified Code(s): N39.0 - Urinary tract infection, site not specified Category: Medical Code(s): N39.0 - Urinary tract infection, site not specified (5) Renal insufficiency Current visit: Yes Status: Acute Category: Medical Code(s): N28.9 - Disorder of kidney and ureter, unspecified (6) CAD (coronary artery disease) Current visit: Yes Status: Acute Category: Medical Code(s): I25.10 - Atherosclerotic heart disease of [place] coronary artery without angina pectoris (7) Bedridden Current visit: Yes Status: Acute Category: Medical Code(s): Z74.01 - Bed confinement status (8) Exfoliative dermatitis Current visit: Yes Status: Acute Category: Medical Code(s): L26 - Exfoliative dermatitis (9) Hypercalcemia Current visit: Yes Status: Acute Category: Medical Code(s): E83.52 - Hypercalcemia (10) Shingles Current visit: Yes Status: Acute Qualifiers: Herpes zoster complications: without complications Qualified Code(s): B02.9 - Zoster without complications Category: Medical Code(s): B02.9 - Zoster without complications (11) Hyperparathyroidism Current visit: Yes Status: Acute Category: Medical Code(s): E21.3 - Hyperparathyroidism, unspecified - Assessment and plan all Dx Assessment and Plan for all problems:: BASED ON VANCOMYCIN TROUGH LEVEL AND PATIENT FACTORS, RECOMMEND CONTINUING VANCOMYCIN 1250 MG IV Q36H. PATIENT WILL BE DISCHARGED TODAY.
--- NOTE | 2017-08-02 21:41 | Discharge Summary ---
General - General Admission date:: 07/29/17 Discharge date: 08/02/17 HPI HPI: 77 year old female with a fairly complicated medical history, was taken to her primary care provider at the [facility] yesterday for evaluation of shingles and redness on her foot. During the evaluation the provided reportedly was able to express puss from around one or more of the toenails. She was thought to have cellulitis and abscess of her foot so she was brought by EMS to [facility] ER for further evaluation. Patient states she has been bedridden for at least the last 3 years. 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 Hospital Course Hospital Course: Patient was admitted for further management and treatment of her foot cellulitis /abscess, UTI and hypercalcemia. She was continued on IVF, vancomycin, and rocephin. Dr. Abraham was consulted and a PICC line was placed. Dr. Abraham trimmed her toe nails. Under the left first and second toenail there was very soft macerated skin. 1 cc of purulence was noted from the right first toenail after it was removed. No ascending cellulitis, nonpalpable lymph nodes, no increased skin temperature was noted to the digits. She did not believe there was evidence of any deep infection based on the x-rays and clinical presentation. She felt the patient had a fungal toenail that was compounded with a possible superficial bacterial infection. Her toenails were painted with Betadine and a dry sterile dressing was applied. Her wound cx was positive for MRSA. She did improve and was stable to be discharged on IV Vancomycin every 36 hours for 10 days. Patient to f/u with primary MD in 2 weeks for possible PICC line removal and with Dr. Abraham in 3 months. Objective Vital signs: Temp Pulse Resp BP Pulse Ox 97.9 F 69 20 176/70 93 L 08/02/17 07:36 08/02/17 07:36 08/02/17 07:36 08/02/17 07:36 08/02/17 07:36 Narrative: - Constitutional no acute distress (conversant) - *Routine HEENT Exam ENT: Present: mucous membranes moist (poor dentition) - *Routine Neck Exam Present: supple (limited rotation) - *Routine Respiratory Exam Present: CTA bilaterally - *Routine Cardiovascular Exam Present: RRR - *Routine Abdominal Exam Present: soft, normoactive bowel sounds. Absent: tenderness - *Routine Extremities Exam Absent: cyanosis, clubbing, edema - *Routine Skin Exam Comments: Only minimal dull redness on the top of the left foot, toenails are thickened and crumbling distally, no purulent drainage noted today - *Routine Neurological Exam Present: alert, oriented X3 Results Labs on day of discharge: Labs from last 24 hours 08/02/17 08/02/17 08/02/17 10:59 07:07 06:35 WBC RBC Hgb Hct MCV MCH MCHC RDW Plt Count MPV Neut % (Auto) Lymph % (Auto) [place] % (Auto) Eos % (Auto) Baso % (Auto) Neut # (Auto) Lymph # (Auto) [place] # (Auto) Eos # (Auto) Baso # (Auto) Sodium 143 Potassium 4.4 Chloride 113 H Carbon Dioxide 22 Anion Gap 12.4 BUN 25 H Creatinine 1.72 H Estimated Creat Clear 31 Estimated GFR 29 L Est GFR ( Amer) 35 L Glucose 133 H POC Glucose 141 H 118 H 25-OH Vitamin D Total 08/02/17 08/01/17 08/01/17 06:35 21:19 17:19 WBC 6.6 RBC 3.44 L Hgb 10.6 L Hct 33.5 L MCV 97.3 MCH 30.8 MCHC 31.6 L RDW 14.2 Plt Count 199 MPV 7.4 Neut % (Auto) 61.0 Lymph % (Auto) 25.8 [place] % (Auto) 7.5 Eos % (Auto) 5.3 Baso % (Auto) 0.4 Neut # (Auto) 4.0 Lymph # (Auto) 1.7 [place] # (Auto) 0.5 Eos # (Auto) 0.4 Baso # (Auto) 0.0 Sodium Potassium Chloride Carbon Dioxide Anion Gap BUN Creatinine Estimated Creat Clear Estimated GFR Est GFR ( Amer) Glucose POC Glucose 146 H 148 H 25-OH Vitamin D Total 07/31/17 07:08 WBC RBC Hgb Hct MCV MCH MCHC RDW Plt Count MPV Neut % (Auto) Lymph % (Auto) [place] % (Auto) Eos % (Auto) Baso % (Auto) Neut # (Auto) Lymph # (Auto) [place] # (Auto) Eos # (Auto) Baso # (Auto) Sodium Potassium Chloride Carbon Dioxide Anion Gap BUN Creatinine Estimated Creat Clear Estimated GFR Est GFR ( Amer) Glucose POC Glucose 25-OH Vitamin D Total 5.7 L Preliminary micro results at discharge 07/29/17 09:06 Blood Culture - Preliminary Blood NO GROWTH AFTER 24 HOURS 07/29/17 09:00 Blood Culture - Preliminary Blood NO GROWTH AFTER 24 HOURS DS: Diagnosis - Discharge Diagnosis (1) Cellulitis of foot Status: Acute (2) MRSA infection Status: Acute (3) E. coli UTI Status: Acute (4) UTI (urinary tract infection) Status: Acute (5) Renal insufficiency Status: Acute (6) CAD (coronary artery disease) Status: Acute (7) Bedridden Status: Acute (8) Exfoliative dermatitis Status: Acute (9) Hypercalcemia Status: Acute (10) Shingles Status: Acute (11) Hyperparathyroidism Status: Acute Discharge Plan - Patient Discharge Instructions ACTIVITY: Continue current activity DIET: continue same diet Patient Instructions: Hyperparathyroidism, DI for Hypercalcemia, DI for Skin Abscess - Follow up Plan Follow up with: Stephen Caceres [Primary Care Provider] - 2 weeks Jeanne Randall [Referring] - 1 month Lana Abraham DPM [Physician] - 10/03/17 Disposition: Home Health Service Home Medications: Home Medications Medication Instructions Recorded Confirmed Type Acetaminophen with Codeine 1 tab PO QID 07/29/17 07/29/17 History [Tylenol with Codeine #3 tablet] Amlodipine Besylate [Amlodipine 10 mg PO DAILY 07/29/17 07/29/17 History 10mg Tab] Aspirin [Aspir 81] 81 mg PO DAILY 07/29/17 07/29/17 History Carvedilol [Carvedilol 25mg Tab] 25 mg PO BID 07/29/17 07/30/17 History Pravastatin Sodium 10 mg PO HS 07/29/17 07/29/17 History Prescriptions/Medication Reconciliation: New Vancomycin HCl [Vancomycin 1000mg Vial] 1,250 mg IV Q36H 10 Days vial cefUROXime axetil [Ceftin 250mg Tablet] 250 mg PO BID #10 tab Continue Acetaminophen with Codeine [Tylenol with Codeine #3 tablet] 1 tab PO QID Amlodipine Besylate [Amlodipine 10mg Tab] 10 mg PO DAILY Aspirin [Aspir 81] 81 mg PO DAILY Pravastatin Sodium 10 mg PO HS Carvedilol [Carvedilol 25mg Tab] 25 mg PO BID
== END 2017-08-02 12:03 | disposition home health service (06) ==
LOC: ER 14:24 → 2ND 14:24 → OBSVTOIN 19:50 → 2ND 19:55
PROVIDERS: ADMIT Internal Medicine Adolescent Medicine; ATTEND Family Medicine

== ENCOUNTER 2017-08-29 22:13 | Inpatient (IN) ==
[2017-08-29 23:08] LABS: Basophils % 0.9 % (0.1-2.0); Eosinophils # 0.1 K/mm3 (0.0-0.4); Hematocrit 45.9 % (37.0-47.0); Lymphocytes # 1.2 K/mm3 (0.7-4.5); Lymphocytes % 24.7 K/mm3 (10-50); Mean Corpuscular HGB Conc 30.5 g/dL (31.8-35.4); Mean Corpuscular Hemoglobin 29.8 pg (27.0-31.2); Mean Corpuscular Volume 97.9 fl (81-99); Monocytes # 0.3 K/mm3 (0.1-1.0); Monocytes % 5.6 % (1.7-9.3); Neutrophils # 3.3 K/mm3 (1.8-7.8); Neutrophils % 66.8 % (37.0-80.0); Platelet Count 225 K/mm3 (142-424); Red Blood Count 4.69 M/mm3 (4.20-5.40); Red Cell Distribution Width 14.6 % (11.5-17.5); White Blood Count 4.9 K/mm3 (4.8-10.8)
[2017-08-29 23:14] LABS: Anion Gap 12.1 mEq/L (5-15); Calcium 11.5 mg/dL (8.5-10.1); Potassium 5.1 mmoL/L (3.5-5.1)
[2017-08-29 23:41] LABS: Appearance,Urine CLEAR (Clear); Bilirubin,Urine Negative (Negative); Blood, Urine TRACE-I (Negative); Color,Urine YELLOW (Yellow); Glucose,Urine (UA) 1+ (Negative); Ketones,Urine Negative (Negative); Leukocyte Esterase,Urine Negative (Negative); Microscopic, Urine URINE MICROSCOPIC (MICROSCOPIC); Protein,Urine 3+ (Negative); Urobilinogen,Urine 0.2 EU/dl (0.2)
--- NOTE | 2017-08-29 23:50 | Emergency Department Note ---
ED Disposition Clinical Impression: Dyspnea and respiratory abnormalities, Hypoxia, Renal insufficiency Hyperglycemia due to type 2 diabetes mellitus Qualifiers: Diabetes mellitus intermodal customer service insulin use: without senior care use Qualified Code(s ): E11.65 - Type 2 diabetes mellitus with hyperglycemia Congestive heart failure Qualifiers: Heart failure type: unspecified Heart failure chronicity: acute Qualified Code( s): I50.9 - Heart failure, unspecified Disposition: Admitted as Observation Condition on Discharge: Fair Referrals: Stephen Caceres [Primary Care Provider] - - Critical Care Critical Care Time: Yes (yes) Attestation: On 08/29/17, the high probability of a clinically significant, sudden or life threatening deterioration of the following system(s) required my full and direct attention, intervention and personal management. The time I documented below is in addition to time spent performing reported procedures but includes the following listed in this critical care notation. Total Critical Care Time: 45 Vital system(s) involved:: Circulatory Failure, Respiratory Failure My critical care processes included: Assessment & monitoring of V/S, Initial and Re-exams, Data Review/Interpretation, Coordinating Care, Medication Orders and management, Documentation Medical Decision Making - Medical Records Medical records reviewed: Yes: I reviewed the patient's medical records. - Mateo Inquiry Pt receiving controlled substance: No (Not indicated) Mateo was queried for this patient: No Vital Signs: 08/29/17 22:15 08/29/17 22:34 08/29/17 23:14 Temperature 98.7 F 97.9 F Temperature Source Oral Oral Pulse Rate 84 Pulse Rate [Right Radial] 88 80 Respiratory Rate 22 20 Blood Pressure [Right Arm] 159/80 146/66 Blood Pressure Mean [Right Arm] 106 92 Blood Pressure Source [Right Arm] Automatic Cuff Automatic Cuff Blood Pressure Position [Right Arm] Supine Supine 02 Sat by Pulse Oximetry 93 L 96 Oxygen Delivery Method Nasal Cannula Nasal Cannula Oxygen Flow Rate (LPM) 2 2 08/29/17 23:42 Temperature Temperature Source Pulse Rate Pulse Rate [Right Radial] 93 H Respiratory Rate 16 Blood Pressure [Right Arm] 146/66 Blood Pressure Mean [Right Arm] 92 Blood Pressure Source [Right Arm] Automatic Cuff Blood Pressure Position [Right Arm] Supine 02 Sat by Pulse Oximetry Oxygen Delivery Method Oxygen Flow Rate (LPM) - Lab Data Lab Results 08/29/17 22:55: WBC 4.9, RBC 4.69, Hgb 14.0, Hct 45.9, MCV 97.9, MCH 29.8, MCHC 30.5 L, RDW 14.6, Plt Count 225, MPV 7.0 L, Neut % (Auto) 66.8, Lymph % (Auto) 24.7, [place] % (Auto) 5.6, Eos % (Auto) 2.0, Baso % (Auto) 0.9, Neut # (Auto) 3.3 , Lymph # (Auto) 1.2, [place] # (Auto) 0.3, Eos # (Auto) 0.1, Baso # (Auto) 0.0 08/29/17 22:55: Sodium 146 H, Potassium 5.1, Chloride 111 H, Carbon Dioxide 28, Anion Gap 12.1, BUN 44 H, Creatinine 2.04 H, Estimated Creat Clear 24, Estimated GFR 23 L, Est GFR ( Amer) 28 L, Glucose 145 H, Calcium 11.5 H 08/29/17 22:55: Lactic Acid 0.2 L 08/29/17 22:55: Troponin I < 0.02 08/29/17 23:27: Urine Color Yellow, Urine Appearance Clear, Urine pH 6.0, Ur Specific [place] 1.020, Urine Protein 3+, Urine Glucose (UA) 1+, Urine Ketones Negative, Urine Blood Trace-i, Urine Nitrate Negative, Urine Bilirubin Negative , Urine Urobilinogen 0.2, Ur Leukocyte Esterase Negative, Urine RBC 5-10, Urine WBC 3-5, Ur Squamous Epith Cells Tntc, Urine Bacteria 1+, Hyaline Casts 3-5 08/30/17 00:01: Specimen Source Rt radial, O2 % 21, ABG pH 7.27 L, ABG pCO2 57.9 H, ABG pO2 47.9 L, ABG HCO3 26.2 H, ABG Total CO2 27.9 H, ABG O2 Saturation 86 L*, ABG Base Excess -0.7, Carter Test Acceptable Result diagrams: 08/29/17 22:55 08/29/17 22:55 Orders (Tests/Meds): ED MEDICATIONS Discontinued Medications Generic Name Dose Route Start Last Admin Trade Name Freq PRN Reason Stop Dose Admin Albuterol/Ipratropium 3 ml 08/29/17 22:29 08/29/17 22:30 Duoneb 3ml Neb IH 08/29/17 22:30 3 ml ONCE ONE Administration ORDERS Category Date Time Status XR chest portable Stat Exams 08/29/17 23:46 Taken Blood Culture Stat Micro 08/29/17 22:55 Received General Adult HPI - General Chief complaint: Shortness of Breath/Dyspnea Stated complaint: Short of air, O2 RA 83-84% Time Seen by Provider: 08/29/17 23:25 Mode of Arrival: EMS Source of Information: Patient, Relative, EMS Limitations: No Limitations Description of Symptoms (Recalled from ER Triage Doc. by RN): Shortness of air, patient states she just doesn't feel right. Oxygen sats 83-84% on RA - History of Present Illness HPI narrative: As given above. O2 was low and she was hallucinating. Denies Chest pain or diaphoresis Onset (ago): hour(s) (2-3) Location: buttocks Severity: moderate Consistency: constant, other (now improved on oxygen) Relieving factors: other (Oxygen) Exacerbating factors: none Associated symptoms: denies other symptoms Treatments prior to arrival: none - Related Data Home Medications Medication Instructions Recorded Confirmed Acetaminophen with Codeine 1 tab PO QID 07/29/17 08/29/17 [Tylenol with Codeine #3 tablet] Amlodipine Besylate [Amlodipine 10 mg PO DAILY 07/29/17 08/29/17 10mg Tab] Aspirin [Aspir 81] 81 mg PO DAILY 07/29/17 08/29/17 Carvedilol [Carvedilol 25mg Tab] 25 mg PO BID 07/29/17 08/29/17 Pravastatin Sodium 10 mg PO HS 07/29/17 08/29/17 Vancomycin HCl [Vancomycin 1000mg 1,250 mg IV Q36H 08/29/17 08/29/17 Vial] cefUROXime axetil [Ceftin 250mg 250 mg PO BID 08/29/17 08/29/17 Tablet] Allergies Allergy/AdvReac Type Severity Reaction Status Date / Time nitrofurantoin Allergy Unknown Verified 07/29/17 14:38 [From MACROBID] Sulfa (Sulfonamide Allergy Unknown Verified 07/29/17 14:38 Antibiotics) [SULFA (SULFONAMIDE ANTIBIOTICS)] sulfamethoxazole Allergy Unknown Verified 07/29/17 14:38 [From BACTRIM] trimethoprim [From BACTRIM] Allergy Unknown Verified 07/29/17 14:38 promethazine [From PHENERGAN] AdvReac Intermediate "MAKES HER Verified 07/29/17 14:38 GO CRAZY AND HAVE HALLUCINATIONS" [facility] History I have reviewed the patient's past medical history: Yes Medical History: Reports:: Atherosclerotic Heart Disease, Diabetes Mellitus Type 2 (NOT TAKING MEDICATIONS FOR DM), Hypertension, Renal Insufficiency Denies:: Cancer, Diabetes Mellitus Type 1, Internal Pacemaker, MRSA Other Medical History: Reports: Arthritis (numerous joints), Other (bedridden for 3 years, hyperparathyroidism, hypercalcemia) Laterality Cases: Bilateral: Total Hip Replacement Other Surgeries: Yes: Cardiac Catheterization, Cholecystectomy, Coronary Stent, Tubal Ligation, Other. No: Pacemaker Amputation: No Fractures: Yes (RADIAL AND ULNAR FRACTURES) - Social History Educational Level: Attended High School Alcohol Intake: never Occupational Status: retired Housing: house Household Members: significant other - Psychiatric History Expresses thoughts of harming self/others: None Suicide Plan Description: No Plan Family Hx:: No significant family history ROS Obtained: Yes All systems reviewed & no additional complaints - Cardiovascular Cardiovascular: Reports system reviewed and no additional complaints, except as docu, Denies chest pain, Reports dyspnea, Denies edema, Denies irregular heart rhythm, Denies palpitations - Respiratory Respiratory: No cough, Yes dyspnea, No wheezing - Neurologic Neurologic: Reports other (Hallucinations) Physical Exam - General General appearance: alert, in no apparent distress - Head Head exam: atraumatic, normocephalic, normal inspection - Eye Eye exam: Present: normal appearance, PERRL, EOMI - ENT ENT exam: Present: normal exam, normal oropharynx, mucous membranes moist, normal external ear exam - Neck Neck exam: Present: normal inspection, full ROM, trachea midline. Absent: meningismus, lymphadenopathy - Chest Chest inspection: Present: normal inspection, symmetric chest wall rise. Absent : tenderness - Respiratory Respiratory exam: Present: normal lung sounds bilaterally. Absent: respiratory distress - Cardiovascular Cardiovascular exam: Present: regular rate, normal rhythm. Absent: JVD - Abdominal Exam Abdominal exam: Present: soft, normal bowel sounds. Absent: distention, tenderness, guarding - Extremities Exam Extremities exam: Present: normal inspection, full ROM, normal capillary refill. Absent: calf tenderness - Back Exam Back exam: Present: normal inspection. Absent: tenderness - Neurological Exam Neurological exam: Present: alert, oriented X3 - Psychiatric Psychiatric exam: Present: normal affect, normal mood - Skin Skin exam: Present: warm, dry, intact, normal color
[2017-08-29 23:57] LABS: Bacteria,Urine 1+ /lpf; Squamous Epithelial Cell,Urine TNTC #/hpf (0-5)
[2017-08-30 00:06] LABS: ABG Base Excess -0.7 mmol/L (-2.4-2.3); ABG HCO3 26.2 mmhg (22.0-26.0); ABG Oxygen Saturation 86 % (90-100); ABG PH 7.27 mmol/L (7.35-7.45); ABG TCO2 27.9 mmhg (23-27)
[2017-08-30 00:08] LABS: Allen's Test ACCEPTABLE; Oxygen 21 %
[2017-08-30 00:11] LABS: ABG PCO2 57.9 mmhg (35.0-45.0); ABG PO2 47.9 mmhg (80-100)
--- NOTE | 2017-08-30 08:20 | Pharmacy Consult Notes ---
[facility] Pharmacy VTE Monitoring - Patient Demographics Admission date: 08/29/17 Report Date: 08/30/17 Time: 08:20 Allergies/Adverse Reactions: Patient Allergies nitrofurantoin [From MACROBID] Allergy (Unknown, Verified 07/29/17 14:38) Sulfa (Sulfonamide Antibiotics) [SULFA (SULFONAMIDE ANTIBIOTICS)] Allergy ( Unknown, Verified 07/29/17 14:38) sulfamethoxazole [From BACTRIM] Allergy (Unknown, Verified 07/29/17 14:38) trimethoprim [From BACTRIM] Allergy (Unknown, Verified 07/29/17 14:38) promethazine [From PHENERGAN] Adverse Reaction (Intermediate, Verified 07/29/17 14:38) "MAKES HER GO CRAZY AND HAVE HALLUCINATIONS" Height: 1.65 m Weight: 75.098 kg Patient Problems: Current Active Problems Renal insufficiency (Acute) Dyspnea and respiratory abnormalities (Acute) Hypoxia (Acute) Hyperglycemia due to type 2 diabetes mellitus (Acute) Congestive heart failure (Acute) - VTE Risk Labs: VTE Related Lab Results Hgb 14.0 g/dL (12.2-16.2) 08/29/17 22:55 Hct 45.9 % (37.0-47.0) 08/29/17 22:55 Plt Count 225 K/mm3 (142-424) 08/29/17 22:55 BUN 44 mg/dL (7-18) H 08/29/17 22:55 Creatinine 2.04 mg/dL (0.55-1.02) H 08/29/17 22:55 Estimated Creat Clear 24 mL/min (0-300) 08/29/17 22:55 VTE Score: 5 VTE Risk Level: Low Risk - Prophylaxis VTE Prophylaxis Ordered?: Yes Types of VTE Prophylaxis: TEDS Knee High Location of Applied Device: Bilateral Lower Extremeties - VTE Diagnosis Confirmed Treatment or plan recommended: Continue Current Treatment
--- NOTE | 2017-08-30 08:26 | History & Physical Report ---
*Admission Date: 08/29/17 *Chief complaint: lethargy, weakness, low oxygen saturations *History of present illness: 77 year old female with multiple chronic medical conditions who has been bed ridden for 4 years following a hip fracture was brought to the ED for a two day history of hallucinations, lethargy and weakness. A family member checked her oxygen saturations at home and reports they were 64% on RA. In the ED, initial CXR was read as CHF. She was given IV Lasix with minimal results. D. Dimer was elevated, as well. She was admitted for oxygen support and further evaluation. Patient denies h/o CHF; however reports she has "13 stents." She is not on oxygen at home and has no previous smoking history. She does report getting choked on both liquids and solids at times. [facility] History I have reviewed the patient's past medical history: Yes Medical History: Reports:: Atherosclerotic Heart Disease, Diabetes Mellitus Type 2, Hypertension, Renal Insufficiency Denies:: Cancer, Diabetes Mellitus Type 1, Internal Pacemaker, MRSA Other Medical History: Reports: Arthritis (numerous joints), Other (bedridden for 3 years, hyperparathyroidism, hypercalcemia) Laterality Cases: Bilateral: Total Hip Replacement Other Surgeries: Yes: Cardiac Catheterization, Cholecystectomy, Coronary Stent, Tubal Ligation, Other. No: Pacemaker Amputation: No Fractures: Yes (RADIAL AND ULNAR FRACTURES) - *Social History Educational Level: Completed High School Alcohol Intake: never Occupational Status: retired Housing: house Household Members: significant other - Psychiatric History Expresses thoughts of harming self/others: None Suicide Plan Description: No Plan *Family Hx:: No significant family history Review of Systems - Review of Systems Review of systems:: pertinent systems reviewed and negative unless documented below - Constitutional Reports malaise, Reports weakness - *Respiratory Reports cough, Reports shortness of breath - *Neurologic Reports confusion, Reports weakness, Reports other (Hallucinations) Meds Home Medications Medication Instructions Recorded Confirmed Type Acetaminophen with Codeine 1 tab PO QID 07/29/17 08/29/17 History [Tylenol with Codeine #3 tablet] Amlodipine Besylate [Amlodipine 10 mg PO DAILY 07/29/17 08/29/17 History 10mg Tab] Aspirin [Aspir 81] 81 mg PO DAILY 07/29/17 08/29/17 History Carvedilol [Carvedilol 25mg Tab] 25 mg PO BID 07/29/17 08/29/17 History Pravastatin Sodium 10 mg PO HS 07/29/17 08/29/17 History Allergies Allergy/AdvReac Type Severity Reaction Status Date / Time nitrofurantoin Allergy Unknown Verified 07/29/17 14:38 [From MACROBID] Sulfa (Sulfonamide Allergy Unknown Verified 07/29/17 14:38 Antibiotics) [SULFA (SULFONAMIDE ANTIBIOTICS)] sulfamethoxazole Allergy Unknown Verified 07/29/17 14:38 [From BACTRIM] trimethoprim [From BACTRIM] Allergy Unknown Verified 07/29/17 14:38 promethazine [From PHENERGAN] AdvReac Intermediate "MAKES HER Verified 07/29/17 14:38 GO CRAZY AND HAVE HALLUCINATIONS" Exam Vital signs and Labs for Last 24 Hours: Temp Pulse Resp BP Pulse Ox 98.9 F 72 18 117/69 93 L 08/30/17 07:37 08/30/17 07:37 08/30/17 07:37 08/30/17 07:37 08/30/17 07:37 Laboratory Results - last 24 hr 08/29/17 22:55: WBC 4.9, RBC 4.69, Hgb 14.0, Hct 45.9, MCV 97.9, MCH 29.8, MCHC 30.5 L, RDW 14.6, Plt Count 225, MPV 7.0 L, Neut % (Auto) 66.8, Lymph % (Auto) 24.7, [place] % (Auto) 5.6, Eos % (Auto) 2.0, Baso % (Auto) 0.9, Neut # (Auto) 3.3 , Lymph # (Auto) 1.2, [place] # (Auto) 0.3, Eos # (Auto) 0.1, Baso # (Auto) 0.0 08/29/17 22:55: Sodium 146 H, Potassium 5.1, Chloride 111 H, Carbon Dioxide 28, Anion Gap 12.1, BUN 44 H, Creatinine 2.04 H, Estimated Creat Clear 24, Estimated GFR 23 L, Est GFR ( Amer) 28 L, Glucose 145 H, Calcium 11.5 H 08/29/17 22:55: Lactic Acid 0.2 L 08/29/17 22:55: Troponin I < 0.02 08/29/17 23:27: Urine Color Yellow, Urine Appearance Clear, Urine pH 6.0, Ur Specific [place] 1.020, Urine Protein 3+, Urine Glucose (UA) 1+, Urine Ketones Negative, Urine Blood Trace-i, Urine Nitrate Negative, Urine Bilirubin Negative , Urine Urobilinogen 0.2, Ur Leukocyte Esterase Negative, Urine RBC 5-10, Urine WBC 3-5, Ur Squamous Epith Cells Tntc, Urine Bacteria 1+, Hyaline Casts 3-5 08/30/17 00:00: D-Dimer 748 H* 08/30/17 00:01: Specimen Source Rt radial, O2 % 21, ABG pH 7.27 L, ABG pCO2 57.9 H, ABG pO2 47.9 L, ABG HCO3 26.2 H, ABG Total CO2 27.9 H, ABG O2 Saturation 86 L*, ABG Base Excess -0.7, Carter Test Acceptable I & O for Last 24 hours: Intake & Output 08/27/17 08/28/17 08/29/17 08/30/17 11:59 11:59 11:59 11:59 Intake Total 970 / 970 Output Total 600 / 600 Balance 370 / 370 Weight 165 lb 9 oz Narrative: Alert and oriented x2, states it is "2019." Rate and rhythm regular, no edema. Lung sounds clear anteriorly. Abdomen soft and nontender. [place] draining clear, yellow urine. Skin pink, warm and dry. No acute neuro deficits. H&P: Result - Labs Labs: Short CBC 08/29/17 Range/Units 22:55 WBC 4.9 (4.8-10.8) K/mm3 Hgb 14.0 (12.2-16.2) g/dL Hct 45.9 (37.0-47.0) % Plt Count 225 (142-424) K/mm3 BMP 08/29/17 22:55 Sodium 146 H Potassium 5.1 Chloride 111 H Carbon Dioxide 28 BUN 44 H Creatinine 2.04 H Glucose 145 H Calcium 11.5 H Cardiac Enzymes 08/29/17 Range/Units 22:55 Troponin I < 0.02 (0.00-0.06) ng/ml Urine 08/29/17 Range/Units 23:27 Urine Color Yellow (Yellow) Urine Appearance Clear (Clear) Urine pH 6.0 (5.0-8.5) Ur Specific [place] 1.020 (1.005-1.030) Urine Protein 3+ (Negative) Urine Glucose (UA) 1+ (Negative) Assessment and Plan (1) Bilateral pneumonia Current visit: Yes Status: Acute Category: Medical Code(s): J18.9 - Pneumonia, unspecified organism (2) Elevated d-dimer Current visit: Yes Status: Acute Category: Medical Code(s): R79.89 - Other specified abnormal findings of blood chemistry (3) CKD (chronic kidney disease) Current visit: Yes Status: Chronic Category: Medical Code(s): N18.9 - Chronic kidney disease, unspecified - Assessment and plan all Dx Assessment and Plan for all problems:: Azithromycin and ceftriaxone added. Bedside swallowing eval for possible aspiration. Will doppler LE and obtain VQ Scan d/t elevated D. Dimer. Will cover with Lovenox pending results.
--- NOTE | 2017-08-30 09:05 | Non-Invasive Vascular Report ---
"Venous Exam Indications: 729.5 Pain in limb. IMPRESSIONS 1. There is no evidence of significant Reflux. 2. No evidence of deep or superficial vein thrombosis involving the right lower extremity and left lower extremity History: Dyspnea. Risk factors: Hypertension. Obese. Congestive heart failure. Renal disease. Patient has been bedridden since 2013. Complete lower extremity venous duplex evaluation. Doppler flow study including spectral analysis, color and harrison scale imaging. Location: Bedside. Patient status: Inpatient. Tables: Venous flow and imaging: + +-------+ + |Location |Overall|Flow properties | + +-------+ + |Right common femoral |Patent |Normal phasicity; spontaneous; normal | | | |augmentation; compressible | + +-------+ + |Right femoral |Patent |Normal phasicity; spontaneous; normal | | | |augmentation; compressible; no reflux | + +-------+ + |Right popliteal |Patent |Normal phasicity; spontaneous; normal | | | |augmentation; compressible | + +-------+ + |Right posterior tibial|Patent |Compressible | + +-------+ + |Right peroneal |Patent |Compressible | + +-------+ + |Right gastrocnemius |Patent |Compressible | + +-------+ + |Right soleal |Patent |Compressible | + +-------+ + |Left common femoral |Patent |Normal phasicity; spontaneous; normal | | | |augmentation; compressible | + +-------+ + |Left femoral |Patent |Normal phasicity; spontaneous; normal | | | |augmentation; compressible | + +-------+ + |Left popliteal |Patent |Normal phasicity; spontaneous; normal | | | |augmentation; compressible | + +-------+ + |Left posterior tibial |Patent |Compressible | + +-------+ + |Left peroneal |Patent |Compressible | + +-------+ + |Left gastrocnemius |Patent |Compressible | + +-------+ + |Left soleal |Patent |Compressible | + +-------+ + (Report amended ) Electronically signed by: Carter Paniagua [id number]"
[2017-08-30 09:47] LABS: Anion Gap 8.7 mEq/L (5-15); Potassium 4.7 mmoL/L (3.5-5.1)
--- NOTE | 2017-08-30 21:11 | Cardiology Report ---
PROCEDURE: 2-D M-mode and color Doppler study INDICATIONS FOR THE TEST: Chest pain COPD Heart Murmur Tobacco Smoking Palpitations Fatigue Syncope Edema Hypertension+Diabetes Mellitus+ Rheumatic Fever SOB VALLADARES Obesity Hyperlipidemia Family History HD Additional History CAD, STENT, BEDRIDDEN FOR 3 YRS PATIENT INFORMATION HEIGHT: 63 WEIGHT:150 GENDER: Female B/P:146/66 2-D/M-MODE INTERPRETATION: 2-D MEASUREMENTS OBSERVED VALUES IN CMS Right Ventricular Dimension (RVDd) 3.2 Interventricular Septum (Thickness)(IVsd) 1.8 Left Ventricular Internal Dimensions(LVIDd) 4.2 Left Ventricular Posterior Wall (Thickness)(LVPWd) 1.2 Aortic Root 2.8 Aortic Cusp Separation 1.9 Left Atrial Dimensions (LAD) 3.1 2D 1. Technically difficult study because of the patient's factor and poor acoustic windows 2. The left atrium is mildly enlarged, left ventricle is normal size, mild concentric left ventricular hypertrophy, visually estimated ejection fraction 55% with no obvious regional wall motion abnormality, endocardial subsequent poorly visualized, a repeat study with Definity contrast is recommended. 3. The right atrium and right ventricle are mildly enlarged with normal contractility. 4. The aortic valve is minimally thickened and fibrosed. 5. The mitral and tricuspid valve are grossly normal. 6. No significant pericardial effusion noted. DOPPLER INTERROGATION: Doppler interrogation of the aortic, mitral and tricuspid valvular presence of mild mitral and tricuspid regurgitation, Doppler evidence of impaired LV relaxation seen, tissue Doppler is inconclusive. Tricuspid regurgitant jet velocity is insufficient for calculation of the right ventricular systolic pressure. CONCLUSION: 1. Technically difficult study because of the patient's factor and poor acoustic windows, repeat study with Definity contrast is recommended. 2. Normal left ventricular size, mild concentric left ventricular hypertrophy, visually estimated ejection fraction is probably 55% with no obvious regional wall motion abnormality, there is poorly visualized. 3. Mildly enlarged right atrium and right ventricle, contractility of the right ventricle is normal 4. Thickened and calcified aortic valve without aortic stenosis aortic insufficiency. 5. Mild mitral and tricuspid regurgitation 6. No significant pericardial effusion noted.
--- NOTE | 2017-08-31 08:56 | Discharge Summary ---
General - General Admission date:: 08/30/17 Discharge date: 08/31/17 HPI HPI: 77 year old female with multiple chronic medical conditions who has been bed ridden for 4 years following a hip fracture was brought to the ED for a two day history of hallucinations, lethargy and weakness. A family member checked her oxygen saturations at home and reports they were 64% on RA. In the ED, initial CXR was read as CHF. She was given IV Lasix with minimal results. D. Dimer was elevated, as well. She was admitted for oxygen support and further evaluation. Patient denies h/o CHF; however reports she has "13 stents." She is not on oxygen at home and has no previous smoking history. She does report getting choked on both liquids and solids at times. Hospital Course Hospital Course: Patient was admitted as noted above, placed on oxygen therapy and IV antibiotics because of bibasilar infiltrates. She was unable to cough up sputum sample. Blood cultures were done and were negative/pending final report at the time of discharge. Because of her marked risk factors for pulmonary embolism/VTE, VQ scan and Dopplers of both legs were done which were low probability and negative respectively. This morning she felt much better, less shortness of air, oxygenation was 89% on room air but nice improvement was noted with 2 L of nasal cannula. Plan will be to discharge home today with antibiotic coverage. She will follow- up with her regular physician group in [place] who are apparently planning to institute some type of home visit situation given her purported inability to get in a wheelchair or travel outside her home other than with ambulance transfer. Objective Vital signs: Temp Pulse Resp BP Pulse Ox 98.5 F 78 18 139/71 95 08/31/17 07:24 08/31/17 07:24 08/31/17 07:24 08/31/17 07:24 08/31/17 07:24 Narrative: Vision is pleasant, talkative, alert and oriented. O2 saturation on 2 L 95%. Lungs have minimal rhonchi in both lung [place] in the bases but overall improved from admission. She has heart rate is regular without murmurs. Abdomen is soft. Previously noted neurologic abnormalities in her extremities are unchanged. No edema or clubbing. Good distal perfusion. Results Labs on day of discharge: Labs from last 24 hours 08/30/17 09:17 Sodium 145 Potassium 4.7 Chloride 110 H Carbon Dioxide 31 Anion Gap 8.7 BUN 44 H Creatinine 2.21 H Estimated Creat Clear 24 Estimated GFR 21 L Est GFR ( Amer) 26 L Glucose 178 H D Calcium 11.0 H DS: Diagnosis - Discharge Diagnosis (1) Bilateral pneumonia Status: Acute (2) Elevated d-dimer Status: Acute (3) CKD (chronic kidney disease) Status: Chronic Discharge Plan - Patient Discharge Instructions ACTIVITY: Continue current activity DIET: continue same diet - Follow up Plan Follow up with: Stephen Caceres [Primary Care Provider] - 1 week Disposition: Home, Self-[facility] Medications: Home Medications Medication Instructions Recorded Confirmed Type Acetaminophen with Codeine 1 tab PO QIDP PRN 07/29/17 08/30/17 History [Tylenol with Codeine #3 tablet] Amlodipine Besylate [Amlodipine 10 mg PO DAILY 07/29/17 08/29/17 History 10mg Tab] Aspirin [Aspir 81] 81 mg PO DAILY 07/29/17 08/29/17 History Carvedilol [Carvedilol 25mg Tab] 25 mg PO BID 07/29/17 08/29/17 History Pravastatin Sodium 10 mg PO HS 07/29/17 08/29/17 History Prescriptions/Medication Reconciliation: New Cefdinir [Omnicef 300mg Capsule] 300 mg PO BID #14 cap predniSONE [Deltasone 20mg tablet] 20 mg PO BID 7 Days #14 tab Azithromycin [Zithromax 250mg tab] 250 mg PO DIRECTED #6 tab Continue Acetaminophen with Codeine [Tylenol with Codeine #3 tablet] 1 tab PO QIDP PRN PRN Reason: PAIN Amlodipine Besylate [Amlodipine 10mg Tab] 10 mg PO DAILY Aspirin [Aspir 81] 81 mg PO DAILY Pravastatin Sodium 10 mg PO HS Carvedilol [Carvedilol 25mg Tab] 25 mg PO BID
== END 2017-08-31 14:50 | disposition home or self-care (01) ==
LOC: 2ND 22:13 → ER 22:13 → OBSVTOIN 08-30 02:10 → 2ND 08-30 02:11
PROVIDERS: ADMIT Internal Medicine Adolescent Medicine; ATTEND Internal Medicine Adolescent Medicine

== ENCOUNTER 2017-09-07 16:27 | Observation (INO) ==
--- NOTE | 2017-09-07 16:58 | Emergency Department Note ---
ED Disposition Clinical Impression: Hyperkalemia, diminished renal excretion, Uremia of renal origin Disposition: Admitted as Observation Condition on Discharge: Good - Critical Care Critical Care Time: Yes Attestation: On 09/07/17, the high probability of a clinically significant, sudden or life threatening deterioration of the following system(s) required my full and direct attention, intervention and personal management. The time I documented below is in addition to time spent performing reported procedures but includes the following listed in this critical care notation. Total Critical Care Time: 20 Vital system(s) involved:: Renal Failure My critical care processes included: Assessment & monitoring of V/S, Initial and Re-exams, Data Review/Interpretation, Coordinating Care, Medication Orders and management, Documentation Medical Decision Making - Medical Records Medical records reviewed: Yes: I reviewed the patient's medical records. MR Comment: 08/29/17 admitted and dx pneumonia, bibasilar, but with negative growth on blood cx as per review of microbiology results; r/o DVT, r/o PE. - Mateo Inquiry Pt receiving controlled substance: No Vital Signs: 09/07/17 16:29 Temperature 98.0 F Temperature Source Oral Pulse Rate [Right Brachial] 80 Respiratory Rate 22 Blood Pressure [Right Radial Artery] 136/72 Blood Pressure Mean [Right Radial Artery] 93 Blood Pressure Source [Right Radial Artery] Automatic Cuff Blood Pressure Position [Right Radial Artery] Sitting 02 Sat by Pulse Oximetry 97 Oxygen Delivery Method Nasal Cannula Oxygen Flow Rate (LPM) 2 - Lab Data Lab results reviewed: Yes: I reviewed the patient's lab results. Lab Results 09/07/17 16:40: WBC 10.1, RBC 4.51, Hgb 13.3, Hct 44.4, MCV 98.3, MCH 29.6, MCHC 30.1 L, RDW 14.2, Plt Count 250, MPV 7.7, Neut % (Auto) 86.5 H, Lymph % ( Auto) 6.2 L, [place] % (Auto) 6.6, Eos % (Auto) 0.5, Baso % (Auto) 0.2, Neut # ( Auto) 8.7 H, Lymph # (Auto) 0.6 L, [place] # (Auto) 0.7, Eos # (Auto) 0.1, Baso # ( Auto) 0.0, Total Counted 100, Neutrophils % (Manual) 83 H, Band Neutrophils % 1.0, Lymphocytes % (Manual) 12, Monocytes % (Manual) 4, Platelet Estimate Normal , Target Cells 1+ 09/07/17 16:40: Sodium 140, Potassium 5.8 H, Chloride 107, Carbon Dioxide 28, Anion Gap 10.8, BUN 98 H, Creatinine 2.20 H, Estimated Creat Clear 24, Estimated GFR 22 L, Est GFR ( Amer) 26 L, Glucose 192 H, Calcium 10.8 H, Total Bilirubin 0.2, AST 13 L, ALT 21, Alkaline Phosphatase 55, Total Protein 6.6, Albumin 2.9 L, Globulin 3.7 H, Albumin/Globulin Ratio 0.8 L 09/07/17 16:40: Lactic Acid 0.6 09/07/17 17:23: ABG pH 7.20 L*, ABG pCO2 61.5 H, ABG pO2 77.1 L, ABG HCO3 23.7, ABG Total CO2 25.5, ABG O2 Saturation 95, ABG Base Excess -4.3 L Result diagrams: 09/07/17 16:40 09/07/17 16:40 Orders (Tests/Meds): ED MEDICATIONS Generic Name Dose Route Start Last Admin Trade Name Freq PRN Reason Stop Dose Admin Calcium Gluconate 1,000 mg/ 35 mls @ 100 mls/hr 09/07/17 17:54 09/07/17 18:06 Sodium Chloride IV 09/07/17 18:14 100 mls/hr ONCE ONE Administration Discontinued Medications Generic Name Dose Route Start Last Admin Trade Name Freq PRN Reason Stop Dose Admin Dextrose 50 ml 09/07/17 17:55 Dextrose 50% 50ml Syringe IVP 09/07/17 17:56 ONCE ONE Insulin Human Regular 10 unit 09/07/17 17:54 Humulin R Insulin 100 Units/Ml 10ml Vial IVP 09/07/17 17:55 ONCE ONE Sodium Polystyrene Sulfonate 15 gm 09/07/17 17:55 Kayexalate 15gm/60ml Bottle PO 09/07/17 17:56 ONCE ONE ORDERS Category Date Time Status 12-lead EKG Request [ECG Request by /Tracy] Stat Y 09/07/17 17:38 Ordered - Radiology Data #1 Image(s): Chest Image Reviewed: Yes I reviewed the patient's radiology image Preliminary Findings: Normal/NAD (bibasilar infiltr seen previously, aortic valve, borderline CM; neg acute interval changes ) - ECG Data Tracing #1 NSR normal axis and intervals, no ST or T w changes, no ectopy; nl EKG - Physician Consults Physician Consulted: Dr. Huggins service call Time: 17:49 (admit on NS 50ml/hr) Reason -: Admission, Pt condition Medical Decision Narrative: ABG compared to prior shows less hypoxia; continues to retain; her BUN is significantly elevated; lab states specimen not hemolyzed and confirms elevated potassium level, which was treated with Calcium IV, insulin/D50, kayexalate; Dr. Huggins on service call amenable to admission; place on NS 50 ml/hr recheck BMP in AM. General Adult HPI - General Chief complaint: Shortness of Breath/Dyspnea Stated complaint: low Sa02 Time Seen by Provider: 09/07/17 16:55 Mode of Arrival: EMS Limitations: No Limitations Description of Symptoms (Recalled from ER Triage Doc. by RN): Pt reports her home health nurse came to see her today and her oxygen level was low, pt is home 02 dependent at 2L per NC. Pt reports that her home health nurse woke her up from a nap. Pt states she was recently discharged from hospital after treatment for pneumonia. Pt denies SOA at this times, states she still isn't feeling as well as she normally would. - History of Present Illness HPI narrative: Patient was napping when HHN assessed her and noted some hypoxia and elevated BP. Sent to ED for evaluation with no complaints. Had dx pneumonia last week, r/ o for PE, doing better on Keflex and Zpack, with last dose of prednisone today. Denies acute SOB or VALLADARES; denies chest pain; denies fever; denies calf edema/pain ; no new cough; no sputum; taking PO well and ate eggbeaters, toast and drank coffee today no problem. Denies any neurological sx. Severity: mild Consistency: now resolved Relieving factors: none (napping) Treatments prior to arrival: none - Related Data Home Medications Medication Instructions Recorded Confirmed Acetaminophen with Codeine 1 tab PO QIDP PRN 07/29/17 09/07/17 [Tylenol with Codeine #3 tablet] Amlodipine Besylate [Amlodipine 10 mg PO DAILY 07/29/17 09/07/17 10mg Tab] Aspirin [Aspir 81] 81 mg PO DAILY 07/29/17 09/07/17 Carvedilol [Carvedilol 25mg Tab] 25 mg PO BID 07/29/17 09/07/17 Pravastatin Sodium 10 mg PO HS 07/29/17 09/07/17 Cefdinir [Omnicef 300mg Capsule] 300 mg PO BID 09/07/17 09/07/17 predniSONE [Deltasone 20mg 20 mg PO BID 09/07/17 09/07/17 tablet] Allergies Allergy/AdvReac Type Severity Reaction Status Date / Time nitrofurantoin Allergy Unknown Verified 07/29/17 14:38 [From MACROBID] Sulfa (Sulfonamide Allergy Unknown Verified 07/29/17 14:38 Antibiotics) [SULFA (SULFONAMIDE ANTIBIOTICS)] sulfamethoxazole Allergy Unknown Verified 07/29/17 14:38 [From BACTRIM] trimethoprim [From BACTRIM] Allergy Unknown Verified 07/29/17 14:38 promethazine [From PHENERGAN] AdvReac Intermediate "MAKES HER Verified 07/29/17 14:38 GO CRAZY AND HAVE HALLUCINATIONS" [facility] History I have reviewed the patient's past medical history: Yes Medical History: Reports:: Atherosclerotic Heart Disease, Hypertension, Renal Insufficiency Denies:: Cancer, Diabetes Mellitus Type 1, Diabetes Mellitus Type 2, Internal Pacemaker, MRSA Other Medical History: Reports: Arthritis (numerous joints), Other (bedridden for 3 years, hyperparathyroidism, hypercalcemia) Laterality Cases: Bilateral: Total Hip Replacement Other Surgeries: Yes: Cardiac Catheterization, Cholecystectomy, Coronary Stent, Tubal Ligation, Other. No: Pacemaker Amputation: No Fractures: Yes (RADIAL AND ULNAR FRACTURES) - Social History Alcohol Intake: never Occupational Status: retired Housing: house Household Members: significant other - Psychiatric History Expresses thoughts of harming self/others: None Suicide Plan Description: No Plan Family Hx:: No significant family history ROS Obtained: Yes All systems reviewed & no additional complaints Physical Exam - General General appearance: alert, in no apparent distress - Head Head exam: atraumatic, normocephalic, normal inspection - Eye Eye exam: Present: normal appearance, PERRL, EOMI - ENT ENT exam: Present: normal exam, normal oropharynx, mucous membranes moist, normal external ear exam - Neck Neck exam: Present: normal inspection, full ROM, trachea midline. Absent: meningismus, lymphadenopathy - Chest Chest inspection: Present: normal inspection, symmetric chest wall rise. Absent : tenderness - Respiratory Respiratory exam: Present: normal lung sounds bilaterally. Absent: respiratory distress - Cardiovascular Cardiovascular exam: Present: regular rate, normal rhythm. Absent: JVD - Abdominal Exam Abdominal exam: Present: soft, normal bowel sounds. Absent: distention, tenderness, guarding - Extremities Exam Extremities exam: Present: normal inspection, full ROM, normal capillary refill. Absent: calf tenderness - Back Exam Back exam: Present: normal inspection. Absent: tenderness - Neurological Exam Neurological exam: Present: alert, oriented X3 - Psychiatric Psychiatric exam: Present: normal affect, normal mood - Skin Skin exam: Present: warm, dry, intact, normal color - Lymphatic Lymphatic Findings: no adenopathy
[2017-09-07 17:02] LABS: Basophils % 0.2 % (0.1-2.0); Eosinophils # 0.1 K/mm3 (0.0-0.4); Eosinophils % 0.5 % (0.1-12.0); Hematocrit 44.4 % (37.0-47.0); Hemoglobin 13.3 g/dL (12.2-16.2); Lymphocytes # 0.6 K/mm3 (0.7-4.5); Lymphocytes % 6.2 K/mm3 (10-50); Mean Corpuscular HGB Conc 30.1 g/dL (31.8-35.4); Mean Corpuscular Hemoglobin 29.6 pg (27.0-31.2); Mean Corpuscular Volume 98.3 fl (81-99); Mean Platelet Volume 7.7 fl (7.4-10.4); Monocytes # 0.7 K/mm3 (0.1-1.0); Monocytes % 6.6 % (1.7-9.3); Neutrophils # 8.7 K/mm3 (1.8-7.8); Neutrophils % 86.5 % (37.0-80.0); Platelet Count 250 K/mm3 (142-424); Red Blood Count 4.51 M/mm3 (4.20-5.40); Red Cell Distribution Width 14.2 % (11.5-17.5); White Blood Count 10.1 K/mm3 (4.8-10.8)
[2017-09-07 17:13] LABS: Albumin Level 2.9 gm/dL (3.4-5.0); Albumin/Globulin Ratio 0.8 (1.1-1.8); Anion Gap 10.8 mEq/L (5-15); Bilirubin,Total 0.2 mg/dL (0.2-1.0); Calcium 10.8 mg/dL (8.5-10.1); Globulin 3.7 gm/dl (1.3-3.2); Potassium 5.8 mmoL/L (3.5-5.1); Total Protein,Serum 6.6 gm/dL (6.4-8.2)
[2017-09-07 17:31] LABS: Lymphocytes % 12 % (10-50); Monocytes % 4 % (2-9); Neutrophils % 83 % (42-76); Total Cells Counted 100
[2017-09-07 17:32] LABS: Target Cells 1+
[2017-09-07 17:34] LABS: ABG Base Excess -4.3 mmol/L (-2.4-2.3); ABG HCO3 23.7 mmhg (22.0-26.0); ABG Oxygen Saturation 95 % (90-100); ABG PO2 77.1 mmhg (80-100); ABG TCO2 25.5 mmhg (23-27)
[2017-09-07 17:36] LABS: ABG PCO2 61.5 mmhg (35.0-45.0)
[2017-09-07 18:48] LABS: Basophils % 0.3 % (0.1-2.0); Eosinophils # 0.1 K/mm3 (0.0-0.4); Eosinophils % 0.8 % (0.1-12.0); Hematocrit 38.3 % (37.0-47.0); Hemoglobin 12.6 g/dL (12.2-16.2); Lymphocytes # 0.5 K/mm3 (0.7-4.5); Lymphocytes % 7.9 K/mm3 (10-50); Mean Corpuscular Hemoglobin 32.5 pg (27.0-31.2); Mean Corpuscular Volume 98.4 fl (81-99); Mean Platelet Volume 7.9 fl (7.4-10.4); Monocytes # 0.2 K/mm3 (0.1-1.0); Monocytes % 3.9 % (1.7-9.3); Neutrophils # 5.5 K/mm3 (1.8-7.8); Neutrophils % 87.1 % (37.0-80.0); Platelet Count 210 K/mm3 (142-424); Red Blood Count 3.89 M/mm3 (4.20-5.40); Red Cell Distribution Width 14.2 % (11.5-17.5); White Blood Count 6.3 K/mm3 (4.8-10.8)
--- NOTE | 2017-09-07 23:10 | Pharmacy Consult Notes ---
[facility] Pharmacy VTE Monitoring - Patient Demographics Admission date: 09/07/17 Report Date: 09/07/17 Time: 23:10 Allergies/Adverse Reactions: Patient Allergies nitrofurantoin [From MACROBID] Allergy (Unknown, Verified 07/29/17 14:38) Sulfa (Sulfonamide Antibiotics) [SULFA (SULFONAMIDE ANTIBIOTICS)] Allergy ( Unknown, Verified 07/29/17 14:38) sulfamethoxazole [From BACTRIM] Allergy (Unknown, Verified 07/29/17 14:38) trimethoprim [From BACTRIM] Allergy (Unknown, Verified 07/29/17 14:38) promethazine [From PHENERGAN] Adverse Reaction (Intermediate, Verified 07/29/17 14:38) "MAKES HER GO CRAZY AND HAVE HALLUCINATIONS" Height: 1.65 m Weight: 70.307 kg Patient Problems: Current Active Problems Hyperkalemia, diminished renal excretion (Acute) Uremia of renal origin (Acute) - VTE Risk Labs: VTE Related Lab Results Hgb 12.6 g/dL (12.2-16.2) 09/07/17 18:40 Hct 38.3 % (37.0-47.0) 09/07/17 18:40 Plt Count 210 K/mm3 (142-424) 09/07/17 18:40 BUN 98 mg/dL (7-18) H 09/07/17 16:40 Creatinine 2.20 mg/dL (0.55-1.02) H 09/07/17 16:40 Estimated Creat Clear 24 mL/min (0-300) 09/07/17 16:40 Clinical Trial Participant: No - Prophylaxis VTE Prophylaxis Ordered?: Yes Types of VTE Prophylaxis: TEDS Knee High
[2017-09-08 06:17] LABS: Albumin Level 2.6 gm/dL (3.4-5.0); Albumin/Globulin Ratio 0.8 (1.1-1.8); Anion Gap 12.4 mEq/L (5-15); Bilirubin,Total 0.2 mg/dL (0.2-1.0); Calcium 10.3 mg/dL (8.5-10.1); Globulin 3.3 gm/dl (1.3-3.2); Phosphorous 6.6 mg/dL (2.4-4.9); Potassium 5.4 mmoL/L (3.5-5.1); Total Protein,Serum 5.9 gm/dL (6.4-8.2)
--- NOTE | 2017-09-08 15:38 | History & Physical Report ---
*Admission Date: 09/07/17 *Chief complaint: lethargy, shortness of breath *History of present illness: 77 year old female who was discharged on 08/31 from [facility] following an admission for pneumonia presented to the ED with increased lethargy and shortness of breath. Significant other reports patient "was out of it" all day yesterday. She was seen by home health nurse and noted to be lethargic and short of breath with low oxygen saturations so she was brought to the ED for evaluation. In the ED, patient was found to have bilateral pleural effusions and hyperkalemia with K 5.4. Potassium was treated and she was admitted for further evaluation. [facility] History I have reviewed the patient's past medical history: Yes Medical History: Reports:: Atherosclerotic Heart Disease, Hypertension, Renal Insufficiency Denies:: Cancer, Diabetes Mellitus Type 1, Diabetes Mellitus Type 2, Internal Pacemaker, MRSA Other Medical History: Reports: Arthritis (numerous joints), Other (bedridden for 3 years, hyperparathyroidism, hypercalcemia) Laterality Cases: Bilateral: Total Hip Replacement Other Surgeries: Yes: Cardiac Catheterization, Cholecystectomy, Coronary Stent, Tubal Ligation, Other. No: Pacemaker Amputation: No Fractures: Yes (RADIAL AND ULNAR FRACTURES) - *Social History Educational Level: Completed High School Alcohol Intake: never Occupational Status: retired Housing: house Household Members: significant other - Psychiatric History Expresses thoughts of harming self/others: None Suicide Plan Description: No Plan *Family Hx:: No significant family history Review of Systems - Review of Systems Review of systems:: pertinent systems reviewed and negative unless documented below - Constitutional Reports malaise, Reports weakness - *Respiratory Reports cough, Reports shortness of breath Meds Home Medications Medication Instructions Recorded Confirmed Type Acetaminophen with Codeine 1 tab PO QIDP PRN 07/29/17 09/07/17 History [Tylenol with Codeine #3 tablet] Amlodipine Besylate [Amlodipine 10 mg PO DAILY 07/29/17 09/07/17 History 10mg Tab] Aspirin [Aspir 81] 81 mg PO DAILY 07/29/17 09/07/17 History Carvedilol [Carvedilol 25mg Tab] 25 mg PO BID 07/29/17 09/07/17 History Pravastatin Sodium 10 mg PO HS 07/29/17 09/07/17 History Allergies Allergy/AdvReac Type Severity Reaction Status Date / Time nitrofurantoin Allergy Unknown Verified 07/29/17 14:38 [From MACROBID] Sulfa (Sulfonamide Allergy Unknown Verified 07/29/17 14:38 Antibiotics) [SULFA (SULFONAMIDE ANTIBIOTICS)] sulfamethoxazole Allergy Unknown Verified 07/29/17 14:38 [From BACTRIM] trimethoprim [From BACTRIM] Allergy Unknown Verified 07/29/17 14:38 promethazine [From PHENERGAN] AdvReac Intermediate "MAKES HER Verified 07/29/17 14:38 GO CRAZY AND HAVE HALLUCINATIONS" Exam Vital signs and Labs for Last 24 Hours: Temp Pulse Resp BP Pulse Ox 98.1 F 77 24 133/61 96 09/08/17 12:15 09/08/17 12:15 09/08/17 12:15 09/08/17 12:15 09/08/17 12:15 Laboratory Results - last 24 hr 09/07/17 16:40: WBC 10.1, RBC 4.51, Hgb 13.3, Hct 44.4, MCV 98.3, MCH 29.6, MCHC 30.1 L, RDW 14.2, Plt Count 250, MPV 7.7, Neut % (Auto) 86.5 H, Lymph % ( Auto) 6.2 L, [place] % (Auto) 6.6, Eos % (Auto) 0.5, Baso % (Auto) 0.2, Neut # ( Auto) 8.7 H, Lymph # (Auto) 0.6 L, [place] # (Auto) 0.7, Eos # (Auto) 0.1, Baso # ( Auto) 0.0, Total Counted 100, Neutrophils % (Manual) 83 H, Band Neutrophils % 1.0, Lymphocytes % (Manual) 12, Monocytes % (Manual) 4, Platelet Estimate Normal , Target Cells 1+ 09/07/17 16:40: Sodium 140, Potassium 5.8 H, Chloride 107, Carbon Dioxide 28, Anion Gap 10.8, BUN 98 H, Creatinine 2.20 H, Estimated Creat Clear 24, Estimated GFR 22 L, Est GFR ( Amer) 26 L, Glucose 192 H, Calcium 10.8 H, Total Bilirubin 0.2, AST 13 L, ALT 21, Alkaline Phosphatase 55, Total Protein 6.6, Albumin 2.9 L, Globulin 3.7 H, Albumin/Globulin Ratio 0.8 L 09/07/17 16:40: Lactic Acid 0.6 09/07/17 17:23: ABG pH 7.20 L*, ABG pCO2 61.5 H, ABG pO2 77.1 L, ABG HCO3 23.7, ABG Total CO2 25.5, ABG O2 Saturation 95, ABG Base Excess -4.3 L 09/07/17 18:40: WBC 6.3 D, RBC 3.89 L, Hgb 12.6, Hct 38.3, MCV 98.4, MCH 32.5 H , MCHC 33.0, RDW 14.2, Plt Count 210, MPV 7.9, Neut % (Auto) 87.1 H, Lymph % ( Auto) 7.9 L, [place] % (Auto) 3.9, Eos % (Auto) 0.8, Baso % (Auto) 0.3, Neut # ( Auto) 5.5, Lymph # (Auto) 0.5 L, [place] # (Auto) 0.2, Eos # (Auto) 0.1, Baso # ( Auto) 0.0 09/07/17 19:55: POC Glucose 150 H 09/08/17 05:40: Sodium 142, Potassium 5.4 H, Chloride 106, Carbon Dioxide 29, Anion Gap 12.4, BUN 95 H, Creatinine 2.10 H, Estimated Creat Clear 24, Estimated GFR 23 L, Est GFR ( Amer) 27 L, Glucose 214 H, Calcium 10.3 H, Phosphorus 6.6 H, Total Bilirubin 0.2, AST 12 L, ALT 23, Alkaline Phosphatase 52 , Total Protein 5.9 L, Albumin 2.6 L D, Globulin 3.3 H, Albumin/Globulin Ratio 0.8 L 09/08/17 06:16: POC Glucose 195 H 09/08/17 11:36: POC Glucose 204 H I & O for Last 24 hours: Intake & Output 09/06/17 09/07/17 09/08/17 09/09/17 11:59 11:59 11:59 11:59 Intake Total 787 / 787 Balance 787 / 787 Weight 188 lb 6 oz Narrative: Alert and oriented x3. Rate and rhythm regular. Fine crackles in baseline, diminished air movement Abdomen soft and nontender. Skin pink. warm and dry. No rashes. Pleasant and cooperative. No LE edema. + foot drop H&P: Result - Labs Labs: Short CBC 09/07/17 09/07/17 Range/Units 16:40 18:40 WBC 10.1 6.3 D (4.8-10.8) K/mm3 Hgb 13.3 12.6 (12.2-16.2) g/dL Hct 44.4 38.3 (37.0-47.0) % Plt Count 250 210 (142-424) K/mm3 BMP 09/07/17 09/08/17 16:40 05:40 Sodium 140 142 Potassium 5.8 H 5.4 H Chloride 107 106 Carbon Dioxide 28 29 BUN 98 H 95 H Creatinine 2.20 H 2.10 H Glucose 192 H 214 H Calcium 10.8 H 10.3 H Liver Function 09/07/17 09/08/17 Range/Units 16:40 05:40 Total Bilirubin 0.2 0.2 (0.2-1.0) mg/dL AST 13 L 12 L (15-37) U/L ALT 21 23 (12-78) U/L Alkaline Phosphatase 55 52 (46-116) U/L Albumin 2.9 L 2.6 L D (3.4-5.0) gm/dL Assessment and Plan (1) Pleural effusion Current visit: Yes Status: Acute Category: Medical Code(s): J90 - Pleural effusion, not elsewhere classified (2) Hyperkalemia, diminished renal excretion Current visit: Yes Status: Acute Category: Medical Code(s): E87.5 - Hyperkalemia (3) Bedridden Current visit: No Status: Acute Category: Medical Code(s): Z74.01 - Bed confinement status - Assessment and plan all Dx Assessment and Plan for all problems:: Potassium remains elevated this morning. Kayexalate ordered. Will give IV Lasix x1 and evaluate urine output. PT consult. Will obtain CT chest to assess for additional pathology. Recheck BMP in the am.
[2017-09-08 17:21] LABS: Free Thyroxine Index 0.9 ug/dL (5.93-13.13); T4 (Thyroxine) 2.3 ug/dl (4.7-13.3); Thyroid Stimulating Hormone 0.59 uIU/ml (0.358-3.740)
[2017-09-09 06:08] LABS: Anion Gap 9.2 mEq/L (5-15); Calcium 9.9 mg/dL (8.5-10.1); Potassium 3.2 mmoL/L (3.5-5.1)
--- NOTE | 2017-09-09 07:57 | Discharge Summary ---
General - General Admission date:: 09/07/17 Discharge date: 09/09/17 HPI HPI: 77 year old female who was discharged on 08/31 from [facility] following an admission for pneumonia presented to the ED with increased lethargy and shortness of breath. Significant other reports patient "was out of it" all day yesterday. She was seen by home health nurse and noted to be lethargic and short of breath with low oxygen saturations so she was brought to the ED for evaluation. In the ED, patient was found to have bilateral pleural effusions and hyperkalemia with K 5.4. Potassium was treated and she was admitted for further evaluation. Hospital Course Hospital Course: Patient was admitted and continued on her previous antibiotics and steroid administration from her pneumonia for which she was treated last week. Hyperkalemia was treated with Kayexalate dosing and IV fluids and resulted in nice improvement with potassium down to 3.2 this morning. Of note, her creatinine also improved to 1.7. Dietitian discussed with her a low potassium diet given her chronic renal insufficiency. She is on no medications that are commonly known to cause hyperkalemia. This morning she was much better and feels at her baseline. Physical therapy evaluation yesterday is appreciated. I believe patient could be much more functional than she is and that physical therapy at home would improve her contractures and allow her to transfer with minimal assistance and allow her to be transported from her home by other means then simply ambulance transfer. She does not seem to be excited about working with physical therapy but this seems to be more of an emotional/psychological issue than a physical matter. Plan will be to discharge home today to finish up antibiotics from previous prescription. She will be followed by her regular physicians group in [place]. She will have [facility] for PT/OT. She will need a BMP by [facility] in 1 week. Objective Vital signs: Temp Pulse Resp BP Pulse Ox 97.6 F 81 14 130/60 98 09/09/17 04:00 09/09/17 04:00 09/09/17 04:00 09/09/17 04:00 09/09/17 04:00 Narrative: Patient is awake and alert. Lungs have good air movement. Heart rate regular. Abdomen soft. She is wearing oxygen please see previous notes for her lower extremity examination findings. Results Labs on day of discharge: Labs from last 24 hours 09/09/17 09/09/17 09/08/17 05:45 05:04 20:33 Sodium 147 H Potassium 3.2 L D Chloride 109 H Carbon Dioxide 32 Anion Gap 9.2 BUN 88 H Creatinine 1.98 H Estimated Creat Clear 28 Estimated GFR 24 L Est GFR ( Amer) 29 L Glucose 135 H POC Glucose 117 H 224 H Calcium 9.9 TSH Free T4 Index Thyroxine (T4) T3 Uptake 09/08/17 09/08/17 09/08/17 16:54 11:36 05:40 Sodium Potassium Chloride Carbon Dioxide Anion Gap BUN Creatinine Estimated Creat Clear Estimated GFR Est GFR ( Amer) Glucose POC Glucose 175 H 204 H Calcium TSH 0.59 Free T4 Index 0.9 L Thyroxine (T4) 2.3 L T3 Uptake 40 H DS: Diagnosis - Discharge Diagnosis (1) Pleural effusion Status: Resolved (2) Hyperkalemia, diminished renal excretion Status: Resolved (3) Bedridden Status: Chronic Discharge Plan - Patient Discharge Instructions ACTIVITY: Continue current activity DIET: other (Low potassium diet) - Follow up Plan Follow up with: Stephen Caceres [Primary Care Provider] - 1 week Unknown provider or service follow up:: 09/09/17 07:57 Patient is homebound secondary to bedridden status. Needs to have home health for PT/OT, transfer improvement, lower extremity range of motion and strengthening, and BMP in 1 week. Needs to follow a low potassium diet. Disposition: Home Health Service Home Medications: Home Medications Medication Instructions Recorded Confirmed Type Acetaminophen with Codeine 1 tab PO QIDP PRN 07/29/17 09/07/17 History [Tylenol with Codeine #3 tablet] Amlodipine Besylate [Amlodipine 10 mg PO DAILY 07/29/17 09/07/17 History 10mg Tab] Aspirin [Aspir 81] 81 mg PO DAILY 07/29/17 09/07/17 History Carvedilol [Carvedilol 25mg Tab] 25 mg PO BID 07/29/17 09/07/17 History Pravastatin Sodium 10 mg PO HS 07/29/17 09/07/17 History Prescriptions/Medication Reconciliation: Continue Acetaminophen with Codeine [Tylenol with Codeine #3 tablet] 1 tab PO QIDP PRN PRN Reason: PAIN Amlodipine Besylate [Amlodipine 10mg Tab] 10 mg PO DAILY Aspirin [Aspir 81] 81 mg PO DAILY Pravastatin Sodium 10 mg PO HS Carvedilol [Carvedilol 25mg Tab] 25 mg PO BID
== END 2017-09-09 10:30 | disposition home health service (06) ==
LOC: 2ND 16:27 → ER 16:27 → 2ND 18:42
PROVIDERS: ADMIT Internal Medicine Adolescent Medicine; ATTEND Internal Medicine Adolescent Medicine

== ENCOUNTER → 2017-10-17 16:57 | Outpatient (REF) | payer OTHER, SELFPAY ==
[2017-10-17 17:21] LABS: Basophils % 0.4 % (0.1-2.0); Eosinophils # 0.1 K/mm3 (0.0-0.4); Eosinophils % 0.5 % (0.1-12.0); Hematocrit 26.9 % (37.0-47.0); Hemoglobin 8.2 g/dL (12.2-16.2); Lymphocytes # 0.7 K/mm3 (0.7-4.5); Lymphocytes % 6.8 K/mm3 (10-50); Mean Corpuscular HGB Conc 30.5 g/dL (31.8-35.4); Mean Corpuscular Hemoglobin 30.5 pg (27.0-31.2); Mean Corpuscular Volume 99.9 fl (81-99); Mean Platelet Volume 7.4 fl (7.4-10.4); Monocytes # 0.5 K/mm3 (0.1-1.0); Monocytes % 5.4 % (1.7-9.3); Neutrophils # 8.4 K/mm3 (1.8-7.8); Neutrophils % 86.9 % (37.0-80.0); Platelet Count 331 K/mm3 (142-424); Red Blood Count 2.69 M/mm3 (4.20-5.40); Red Cell Distribution Width 16.5 % (11.5-17.5); White Blood Count 9.7 K/mm3 (4.8-10.8)
[2017-10-17 17:23] LABS: MANUAL DIFFERENTIAL MANUAL DIFFERENTIAL (MANUAL DIFF)
[2017-10-17 19:17] LABS: Lymphocytes % 4 % (10-50); Monocytes % 3 % (2-9); Neutrophils % 93 % (42-76); Total Cells Counted 100
[2017-10-17 19:18] LABS: Platelet Estimate Normal; RBC Morphology Normal
[2017-10-17 20:59] LABS: Alanine Aminotransferase 9 U/L (12-78); Albumin Level 1.6 gm/dL (3.4-5.0); Albumin/Globulin Ratio 0.4 (1.1-1.8); Alkaline Phosphatase 81 U/L (46-116); Anion Gap 14.5 mEq/L (5-15); Aspartate Amino Transferase 13 U/L (15-37); Bilirubin,Total 0.1 mg/dL (0.2-1.0); Blood Urea Nitrogen 66 mg/dL (7-18); Calcium 9.9 mg/dL (8.5-10.1); Carbon Dioxide 23 mmol/L (21.0-32.0); Chloride 110 mmol/L (98-107); Creatinine,Serum 2.94 mg/dL (0.55-1.02); Estimated Glomerular Filt Rate 15 ml/min (>60); GFR (African American) 19 ML/MIN (>60); Globulin 3.9 gm/dl (1.3-3.2); Glucose 93 mg/dL (74-106); Sodium 141 mmol/L (136-145); Total Protein,Serum 5.5 gm/dL (6.4-8.2)
[2017-10-17 21:39] LABS: Potassium 6.5 mmoL/L (3.5-5.1)
== END ==
LOC: LAB 16:57
PROVIDERS: Visit Provider Family Medicine
DX: I50.30 Unspecified diastolic (congestive) heart failure (principal); J96.00 Acute respiratory failure, unspecified whether with hypoxia or hypercapnia
CPT/HCPCS: 80053; 85007; 85025